=== PATIENT | female | born 1990 | race Hispanic/Latino ===

== ENCOUNTER 2024-06-11 18:43 | Observation (INO) | payer BC, MEDICAID ==
[~2024-06-11] VITALS: Ht 147.3 cm; Wt 71.2 kg
--- NOTE | 2024-06-11 18:59 | ERN ---
ED Note History of Present Illness Stated Complaint: N/V/D, EPIGASTRIC PAIN Chief Complaint: Nausea,Vomiting,Diarrhea Time Seen by MD: 18:48 Dictation: This is a 33-year-old female who presented to the emergency room with complaints of nausea vomitings and diarrhea most of the abdominal pain that she reported is in the epigastric area. All these symptoms started today patient's partner also reported that she saw some blood in the emesis. Never had these symptoms before. She received Wegovy injection yesterday for the 1st time for weight loss She also gives a history of dysmenorrhea with the heavy bleeding monthly cycle with clots. She saw her Ob and has been placed on hormonal treatment. This has not improved and currently she is on her menses Temperature 97.8 pulse 116 respirations 20 blood pressure 118/77 with a pulse oximetry of 100% on room air Allergies: Coded Allergies: No Known Allergies (Unverified Allergy, Unknown, 06/11/24) Home Meds Active Scripts Ondansetron (Ondansetron Odt) 4 Mg Tab.rapdis, 4 MG PO Q6HPRN PRN for nausea, #16 TAB 0 Refills Prov:REGINALD GARDNER MD 06/11/24 Past Medical History Past Medical History: No Pertinent History Surgical History: None Family History: Negative Social History: Negative History: Not Applicable LMP: Jun 10, 2024 RN Note Reviewed/Agreed w/PFSH: Yes Review of System Dictation Constitutional: Negative for fever,chills, and weight loss Eyes: Negative for injury, pain,redness, and discharge ENT: Negative for injury,pain or swelling Cardiovascular: Negative for chest pain, palpitations, and edema Respiratory: Negative for shortness of breath, cough, and wheezing, Abdomen/GI: Positive for abdominal pain, nausea, vomiting, diarrhea, and denied constipation Back: Negative for injury and pain : Negative for injury, bleeding and discharge MS/Extremity: Negative for injury and deformity Skin: Negative for rash, and discoloration Neuro: Negative for headache, weakness, numbness, tingling, and seizure Psych: Negative for suicide ideation, homicidal ideation, and hallucinations Initial Vital Sign VS Vital Signs Date Time Temp Pulse Resp B/P (MAP) Pulse Ox O2 Delivery O2 Flow Rate FiO2 06/11/24 18:45 97.9 116 20 118/77 100 Room Air 0 06/11/24 20:59 21 Physical Exam Dictation General: awake, alert, NAD mucous membranes dry Head/Face: Normocephalic, atraumatic Eyes: PERRL, EOMI, vision at baseline ENT: oral cavity clear, TMs clear, no signs of infection Neck: Trachea midline, supple, no nuchal rigidity Cardiovascular: RRR, normal S1/S2, No MRGs, no JVD Respiratory: CTAB, no respiratory distress, No rales or wheezes Abdomen: Soft, non-tender, non-distended, normal bowel sounds, no guarding or rebound. Skin: Warm, dry, normal turgor, no rash MS/Extremity: Pulses equal, no cyanosis, neurovascular intact, FROM Neuro: COAx4, GCS 15, strength 5/5, CN 2-12 intact, normal cerebellar exam, normal gait, Psych: Normal behavior, mood, and affect normal Extremities-trace edema without any palpable cords, Homans sign is negative Results (Laboratory/Radiology) Laboratory/Radiology Laboratory Tests Test 06/11/24 19:46 White Blood Count 13.9 K/uL (4.8-10.8) H Red Blood Count 4.63 MIL/uL (4.00-5.50) Hemoglobin 7.9 g/dL (12.0-16.0) L Hematocrit 28.4 % (36-48) L Mean Corpuscular Volume 61.3 fL (79-99) L Mean Corpuscular Hemoglobin 17.1 pg (27.0-33.0) L Mean Corpuscular Hemoglobin Concent 27.8 g/dL (32.0-36.0) L Red Cell Distribution Width 19.5 % (11.0-15.5) H Platelet Count 331 K/uL (130-400) Mean Platelet Volume fL (7.5-10.5) Immature Granulocyte % (Auto) 0.6 % (0-1) Neutrophils (%) (Auto) 82.6 % (40.0-77.0) H Lymphocytes (%) (Auto) 10.4 % (21.0-51.0) L Monocytes (%) (Auto) 6.0 % (3.0-13.0) Eosinophils (%) (Auto) 0.1 % (0.0-8.0) Basophils (%) (Auto) 0.3 % (0.0-5.0) Neutrophils # (Auto) 11.5 K/uL (1.8-7.7) H Lymphocytes # (Auto) 1.5 K/uL (1.0-4.8) Monocytes # (Auto) 0.8 K/uL (0.1-1.0) Eosinophils # (Auto) 0.01 K/uL (0.00-0.70) Basophils # (Auto) 0.04 K/uL (0.00-0.20) Absolute Immature Granulocyte (auto 0.08 K/uL (0-1) Nucleated Red Blood Cells 0.0 % (0.0-0.19) Red Blood Cell Morphology See comments Sodium Level 144 mmol/L (136-145) Potassium Level 3.8 mmol/L (3.5-5.1) Chloride Level 106 mmol/L (101-111) Carbon Dioxide Level 24 mmol/L (21-32) Blood Urea Nitrogen 23 mg/dL (7-18) H Creatinine 0.9 mg/dL (0.5-1.0) Glomerular Filtration Rate Calc 88 mL/min (>90) Random Glucose 147 mg/dL (70-105) H Total Calcium 9.3 mg/dL (8.5-10.1) Lipase 103 U/L (16-77) H Serum Test, Qualitative NEGATIVE (NEGATIVE) Labs Reviewed?: Yes ED Course ED Course Orders Procedure Category Date Status Time Ondansetron 4mg Inj PHA 06/11/24 Complete (Zofran 4mg Inj) 19:00 Pantoprazole 40mg Inj PHA 06/11/24 Complete (Protonix 40mg Inj 19:00 0.9% Nacl 500ml PHA 06/11/24 Complete Iv.Soln (Ns 500ml 19:00 Cbc With Differential LAB 06/11/24 Complete 18:55 Lipase LAB 06/11/24 Complete 18:55 Basic Metabolic Panel LAB 06/11/24 Complete 18:55 Type And Screen BBK 06/11/24 In Process 20:07 Chest 1vw RAD 06/11/24 Taken 20:10 Testing, LAB 06/11/24 Complete Serum Hcg 20:28 Admit Orders ADM 06/11/24 Transmitted 21:05 Urinalysis Profile LAB 06/11/24 Logged Catherized 21:08 *Nursing CPOE 06/11/24 Transmitted Communication: 21:08 Edm Admit Bridge Order ADM 06/11/24 Transmitted 21:13 Current Medications Medications (Trade) Dose Ordered Sig/Myron Route PRN Reason Start Time Stop Time Status Last Admin Dose Admin Ondansetron HCl (zoFRAN 4MG INJ) 4 mg ONCE ONCE IVP 06/11/24 19:00 06/11/24 19:01 DC 06/11/24 19:50 Pantoprazole Sodium (PROTonix 40MG INJ) 40 mg ONCE ONCE IVP 06/11/24 19:00 06/11/24 19:01 DC 06/11/24 19:50 Sodium Chloride 500 ml @ 0 mls/hr ONCE ONCE IV 06/11/24 19:00 06/11/24 19:01 DC 06/11/24 19:49 Vital Signs Date Time Temp Pulse Resp B/P (MAP) Pulse Ox O2 Delivery O2 Flow Rate FiO2 06/11/24 20:59 88 18 116/66 100 Room Air* 0 21 06/11/24 18:45 97.9 116 20 118/77 100 Room Air 0 We will perform diagnostic labs, and administer medications according to the patient's complaint. Once the results are available, will review and personally interpreted the labs to rule out any acute life-threatening emergency the trach require immediate intervention and treatment. I will then re-evaluate the patient after treatment and diagnostic exams have return to determine whether the patient requires any further testing, can safely be discharged home or need further admission to hospital for additional treatment and evaluation. I reviewed the labs CBC shows a white count of 13.9 hemoglobin of 7.9. BNP 7 shows a BUN and creatinine of 23 and 0.9 She has never been told that she was anemic and with the presentation of vomitings and upper GI bleed, GI pathology definitely needs to be ruled out before considering anemia secondary to dysfunctional uterine bleeding. I updated the patient and her partner and went over the labs and my concerns and she is agreeable to admission to the hospital Patient accepted by [facility] mid-level provider for the hospitalist group to be admitted to Dr. Sohail Louis Medical Decision Making MDM MDM: Differential diagnosis: Likely side effects of Wegovy, gastritis, peptic ulcer disease, gastroenteritis, Rationale: Tests considered and ordered secondary to shared decision making include: Previous outside records reviewed: Old ER visits. Risk of complication and/or morbidity or mortality of patient management: None Medications-Per medication reconciliation Need for hospitalization: Patient does not meet criteria for hospitalization. Need for emergency major/minor surgery: No There are no social concerns with this patient. Prescription drug management Prescriptions will include symptomatic care Patient's prior external medical records from other ER visits were reviewed by me as indicated. Prior testing and results from previous visits were reviewed. Prior tests were taken into account with medical decision making and resource utilization, independent historian/historians were used to obtain complete medical history. I independently interpreted the test that were performed, results were reviewed by me and considered findings on radiology if ordered. Medical management and examination interpretation discussions were had by me with other qualified healthcare professionals as indicated for the patient's care. Problem List Problem List: (1) Nausea & vomiting (2) Gastritis (3) Adverse effects of medication (4) Upper GI bleed DX & DISP Disposition: Inpatient Decision to Admit Time: 20:31 Departure Impression: Primary Impression: Nausea & vomiting Additional Impressions: Gastritis, Adverse effects of medication, Upper GI bleed Condition: Stable Scripts Ondansetron (Ondansetron Odt) 4 Mg Tab.rapdis 4 MG PO Q6HPRN PRN for nausea, #16 TAB 0 Refills Prov: REGINALD GARDNER MD 06/11/24 Additional Instructions: Patient was informed of all the diagnostic labs and procedures conducted in the emergency room today and demonstrated understanding of the results. I personally reviewed and interpreted all the diagnostic exams performed in the ER today. The patient will be admitted to the hospital for further treatment and evaluation. Disposition-admit to facility Condition-stable/guarded Course-uncertain at this time Pain status-decreased Assessment-exam unchanged Admission Certification- I certify that the patients status is appropriate and is based on my best clinical judgment and the patient's condition as documented in the medical records Referrals: SELF,REFERRAL (PCP) REGINALD GARDNER MD Jun 11, 2024 18:59
[2024-06-11] MEDS ORDERED: ONDA-243 PO (19:08)
[2024-06-11] MEDS: 0.9% NACL 500ML IV.SOLN 500 ML IV ONE (19:49)
[2024-06-11] MEDS: PANTOPrazole 40 MG/VIAL IVP ONE (19:50)
[2024-06-11] MEDS: ondanSETRON 4MG INJ IVP ONE (19:50)
[2024-06-11 19:54] LABS: BASOPHILS # (AUTO) 0.04 K/uL (0.00-0.20); BASOPHILS % (AUTO) 0.3 % (0.0-5.0); EOSINOPHILS # (AUTO) 0.01 K/uL (0.00-0.70); EOSINOPHILS % (AUTO) 0.1 % (0.0-8.0); HEMATOCRIT 28.4 % (36-48); IMMATURE GRANULOCYTE ABSOLUTE 0.08 K/uL (0-1); LYMPHOCYTES # (AUTO) 1.5 K/uL (1.0-4.8); LYMPHOCYTES % (AUTO) 10.4 % (21.0-51.0); MEAN CORPUSCULAR HEMOGLOBIN 17.1 pg (27.0-33.0); MEAN CORPUSCULAR HGB CONC 27.8 g/dL (32.0-36.0); MEAN CORPUSCULAR VOLUME 61.3 fL (79-99); MONOCYTES # (AUTO) 0.8 K/uL (0.1-1.0); NEUTROPHILS # (AUTO) 11.5 K/uL (1.8-7.7); NEUTROPHILS % (AUTO) 82.6 % (40.0-77.0); PLATELET COUNT (AUTO) 331 K/uL (130-400); RED BLOOD CELL COUNT(AUTO) 4.63 MIL/uL (4.00-5.50); RED CELL DISTRIBUTION WIDTH 19.5 % (11.0-15.5); WHITE BLOOD COUNT (AUTO) 13.9 K/uL (4.8-10.8)
[2024-06-11 20:02] LABS: CREATININE 0.9 mg/dL (0.5-1.0); POTASSIUM 3.8 mmol/L (3.5-5.1)
--- NOTE | 2024-06-11 21:11 | NUR ---
PATIENT REPORTS N/V/D AFTER STARTING ON WEGOVY FOR WEIGHT LOSS
[2024-06-11] MEDS ORDERED: acetaMINOPHEN 650 MG SUPPOSITORY RC PRN (21:30)
[2024-06-11] MEDS ORDERED: TEMAZepam 15 MG CAPSULE PO PRN (21:30)
[2024-06-11] MEDS ORDERED: hydrALAZine 20MG/ML VIAL IV PRN (21:30)
--- NOTE | 2024-06-11 21:52 | NUR ---
PATIENT REPORTS SHE DOES NOT TAKE ANY PRESCRIBED MEDICATIONS
[2024-06-11] MEDS: LACTATED RINGERS 1000ML 1,000 ML IV SCH (22:00)
[2024-06-11] MEDS: FERROUS SULFATE 325 MG TABLET.DR PO SCH (22:00)
--- NOTE | 2024-06-11 22:11 | HP ---
[facility] HISTORY AND PHYSICAL Date of Service: Jun 11, 2024 Time of Service: 22:11 Supervising physicians: Dr. Louis and Dr. Newton Deluca HISTORY OF PRESENT ILLNESS: Ms. Amador is a 33-year-old female gastritis, obesity, dysmenorrhea with heavy vaginal bleeding who presented to the emergency room for evaluation of nausea, vomiting, and diarrhea, and epigastric area onset today. The patient's partner also reported that she saw moderate amount blood in the emesis. Never had these symptoms before. She received Wegovy injection yesterday for the 1st time for weight loss. She also gives a history of dysmenorrhea with the heavy bleeding mo nthly cycle with clots. She saw her Ob and has been placed on hormonal treatment. This has not improved and currently she is on her menses. ED v/s: Temperature 97.8 pulse 116 respirations 20 blood pressure 118/77 with a pulse oximetry of 100% on room air. Labs: WBC 13.9 hemoglobin of 7.9. BUN and creatinine of 23 and 0.9. The patient stated that she has never been told that she was anemic. ED provider reports that with the presentation of vomiting and upper GI bleed, GI pathology definitely needs to be ruled out before considering anemia secondary to dysfunctional uterine bleeding. In ED patient was administered Protonix 40 mg IV, NS 500 bolus, Zofran4 mg IV. ED physician request patient be admitted with the diagnosis of nausea, vomiting, gastritis, adverse effect of medication, upper GI bleed. I went to evaluate the patient at bedside. Patient appeared comfortable, in no distress. Reports no more vomiting blood after arrival to the ED. The patient reported chronic gastritis problems but has not seen a GI doctor. Patient reports epigastric pain and nausea during my assessment. Zofran 4 mg IV, Maalox, and lidocaine were administered. I informed patient of labs, diagnosis, plan of care. She verbalized understanding and is in agreement with the plan. Plan and assessment are listed below. Addendum: Hemoglobin dropped to 6.0 in the morning. Order placed for blood transfusion. REVIEW OF SYSTEMS ROS reviewed with patient. All pertinent positives mentioned above. Otherwise negative, noncontributory, or non-pertinent. PAST MEDICAL HISTORY: As mentioned above PAST SURGICAL HISTORY: Denies surgical history PAST SOCIAL HISTORY: Denies: Alcohol, tobacco, illicit drug use FAMILY HISTORY: Noncontributory Coded Allergies: No Known Allergies (Unverified Allergy, Unknown, 06/11/24) PHYSICAL EXAM GENERAL APPEARANCE: The patient is awake, alert, and oriented, in no acute cardiopulmonary distress. NEUROLOGICAL: Cranial nerves II-XII grossly intact. Motor is 5/5 in bilateral upper and lower extremities proximal to distal. No sensory deficits. HEENT: Face is symmetric. Pupils are equal and reactive. Extraocular movements are intact. NECK: Supple. No JVD. No thyromegaly. No submental, submandibular, pre- /postauricular, occipital or supraclavicular lymphadenopathy. CHEST: Normal chest expansion. No Telemetry. LUNGS: Absence of any rales, rhonchi or any wheezing. CARDIOVASCULAR: Regular. S1 and S2 normal. No appreciable rubs, murmurs or gallops. ABDOMEN: Soft, nontender, and nondistended. There is no rebound, voluntary guarding, or rigidity. : Deferred. No Ruiz. EXTREMITIES: Non-edematous and not cyanotic. No clubbing. Good capillary refill. SKIN: No skin breakdown. Vital Sign (Last 24 Hours) 06/11/24 06/11/24 18:45 20:59 Temp 97.9 Pulse 88 Resp 18 B/P (MAP) 116/66 Pulse Ox 100 O2 Delivery Room Air* O2 Flow Rate 0 FiO2 21 LABS: Laboratory: Test 06/11/24 19:46 Range/Units White Blood Count 13.9 H 4.8-10.8 K/uL Red Blood Count 4.63 4.00-5.50 MIL/uL Hemoglobin 7.9 L 12.0-16.0 g/dL Hematocrit 28.4 L 36-48 % Mean Corpuscular Volume 61.3 L 79-99 fL Mean Corpuscular Hemoglobin 17.1 L 27.0-33.0 pg Mean Corpuscular Hemoglobin Concent 27.8 L 32.0-36.0 g/dL Red Cell Distribution Width 19.5 H 11.0-15.5 % Platelet Count 331 130-400 K/uL Mean Platelet Volume 7.5-10.5 fL Immature Granulocyte % (Auto) 0.6 0-1 % Neutrophils (%) (Auto) 82.6 H 40.0-77.0 % Lymphocytes (%) (Auto) 10.4 L 21.0-51.0 % Monocytes (%) (Auto) 6.0 3.0-13.0 % Eosinophils (%) (Auto) 0.1 0.0-8.0 % Basophils (%) (Auto) 0.3 0.0-5.0 % Neutrophils # (Auto) 11.5 H 1.8-7.7 K/uL Lymphocytes # (Auto) 1.5 1.0-4.8 K/uL Monocytes # (Auto) 0.8 0.1-1.0 K/uL Eosinophils # (Auto) 0.01 0.00-0.70 K/uL Basophils # (Auto) 0.04 0.00-0.20 K/uL Absolute Immature Granulocyte (auto 0.08 0-1 K/uL Nucleated Red Blood Cells 0.0 0.0-0.19 % Red Blood Cell Morphology See comments Sodium Level 144 136-145 mmol/L Potassium Level 3.8 3.5-5.1 mmol/L Chloride Level 106 101-111 mmol/L Carbon Dioxide Level 24 21-32 mmol/L Blood Urea Nitrogen 23 H 7-18 mg/dL Creatinine 0.9 0.5-1.0 mg/dL Glomerular Filtration Rate Calc 88 >90 mL/min Random Glucose 147 H 70-105 mg/dL Total Calcium 9.3 8.5-10.1 mg/dL Lipase 103 H 16-77 U/L Serum Test, Qualitative NEGATIVE NEGATIVE Current Medications Medications (Trade) Dose Ordered Sig/Myron Route PRN Reason Start Time Stop Time Status Last Admin Dose Admin Acetaminophen (TYLenol 325MG TAB) 650 mg Q6H PRN PO FEVER/MILD PAIN LEVEL 1-3 06/11/24 21:30 07/11/24 21:29 Acetaminophen (TYLenol 650MG SUPPOSITORY) 650 mg Q6H PRN RC FEVER / MILD PAIN 1-3 IF NPO 06/11/24 21:30 07/11/24 21:29 Ferrous Sulfate (Ferrous Sulfate) 325 mg BID PO 06/11/24 21:40 07/11/24 21:39 06/11/24 22:00 325 MG Hydralazine HCl (APRESOLine 20MG INJ) 10 mg Q2H PRN IV SBP GREATER THAN 160 06/11/24 21:30 07/11/24 21:29 Insulin Human Regular (humuLIN R 100 UNIT/ML 3ML) INSULIN SLIDING SCAL... ACHS SQ 06/12/24 07:30 07/12/24 07:29 Lactated Ringer's 1,000 ml @ 75 mls/hr [id number] IV 06/11/24 21:30 07/11/24 21:29 06/11/24 22:00 75 MLS/HR Ondansetron HCl (zoFRAN 4MG INJ) 4 mg Q6H PRN IVP NAUSEA/VOMITING 06/11/24 21:30 07/11/24 21:29 Pantoprazole Sodium (PROTonix 40MG INJ) 40 mg BID IVP 06/12/24 09:00 07/12/24 08:59 Temazepam (restORIL 15 MG CAP) 15 mg HS PRN PO INSOMNIA/SLEEP 06/11/24 21:30 07/11/24 21:29 DIAGNOSTICS / RADIOLOGY: [ ] ASSESSMENT: Upper GI bleed, POA, suspected adverse effects to Wegovy injection on 06/11/2024 Acute nausea and vomiting, POA Acute dehydration 2/2 above (elevated BUN and ketonuria), POA MONSE, GFR 88, POA Hyperglycemia, POA Elevated lipase, POA Severe anemia, requiring blood transfusion (etiology GI bleed vs dysfunction uterine bleeding, likely combined etiology), POA Chronic gastritis,. Dysfunctional uterine bleeding,. Obesity, BMI 33.5 PLAN: Admit to medical floor. Continue Protonix 40 mg IV b.i.d.. Monitor for bleed and H&H q.6 hours. Transfuse1 unit PRBCs p.r.n. hemoglobin less than seven. Keep NPO. Ferrous [id number] mg p.o. b.i.d.. Start LR 75 mL an hour. Consult GI in in a.m. Oxygen therapy as needed to keep SpO2 equal to 92%. P.r.n. medications for: Pain management, fever, hypertension, nausea, vomiting, constipation. Glucose checks a.c. and HS with insulin regular sliding scale. Blood pressure checks every4 hours and as needed. Reconcile home medications once available. Monitor renal and liver function. Monitor electrolytes and treat accordingly. A.m. labs: CBC, BNP, Mag, phos, A1c, TSH. GI and DVT prophylaxis: Protonix and SCDs. Upon discharge from hospital follow up with OBGYN for chronic dysfunction uterine bleed. ADVANCED CARE PLANNING 1. Which of the following were discussed? Hospice Care - no Therapeutic options - no Advance Directives - yes Other discussions - 2. Discussed with who? Patient 3. Voluntary nature of this service was explained to the patient? Yes 4. Amount of time spent - __ over 35 minute 5. Reviewed by Physician? (if this service was performed by NPP) Yes Patient seen and examined by me. Agree with note by CUSHION MAKER SEE ADDITIONAL ORDERS PER CHART DISCUSSED WITH NURSING STAFF GLENN ROJO TOOL STRAIGHTENER Jun 11, 2024 22:11
[2024-06-11 22:50] VITALS: BP 113/76; PULSE 111; RESP 20; TEMP 98.6; O2SAT 98
[2024-06-12] MEDS: ondanSETRON 4MG INJ IVP PRN (00:30)
[2024-06-12 00:53] LABS: APPEARANCE,URINE CLEAR (CLEAR); BILIRUBIN,URINE NEGATIVE (NEGATIVE); COLOR,URINE YELLOW (YELLOW); GLUCOSE, URINE (UA) NEGATIVE (NEGATIVE); KETONES,URINE 150 mg/dL (NEGATIVE); LEUKOCYTE ESTERASE ,URINE NEGATIVE Leu/uL (NEGATIVE); NITRATE,URINE NEGATIVE (NEGATIVE); OCCULT BLOOD,URINE SMALL (NEGATIVE); PROTEIN,URINE 30 mg/dL (NEGATIVE); UROBILINOGEN,URINE 0.2 mg/dL (0.2-1.0)
[2024-06-12 00:54] LABS: ADD UA MICROSCOPIC YES
[2024-06-12 00:55] LABS: MUCUS,URINE RARE LPF (None Seen); RBC,URINE 26-50 /HPF (0-1); SQUAMOUS EPITHELIAL CELL,UR RARE /HPF (0-2); WBC,URINE 0-1 /HPF (0-1)
[2024-06-12] MEDS: MAG/ALUM/SIMETH 30 ML UDCUP PO ONE (00:56)
[2024-06-12] MEDS: LIDOCAINE HCL 2% VISCOUS 15 ML UDCUP PO ONE (00:57)
[2024-06-12 04:00] VITALS: BP 129/73; PULSE 111; RESP 20; TEMP 98.1
[2024-06-12 04:51] LABS: MAGNESIUM 1.8 mg/dL (1.80-2.40); PHOSPHORUS 4.4 mg/dL (2.5-4.9); THYROID STIMULATING HORMONE 0.53 uIU/mL (0.36-3.74)
[2024-06-12 05:05] LABS: MEAN CORPUSCULAR HEMOGLOBIN 17.4 pg (27.0-33.0); MEAN CORPUSCULAR HGB CONC 28.6 g/dL (32.0-36.0); MEAN CORPUSCULAR VOLUME 60.9 fL (79-99); RED BLOOD CELL COUNT(AUTO) 3.45 MIL/uL (4.00-5.50); RED CELL DISTRIBUTION WIDTH 18.8 % (11.0-15.5); WHITE BLOOD COUNT (AUTO) 9.2 K/uL (4.8-10.8)
--- NOTE | 2024-06-12 05:36 | NUR ---
PATIENT NOTIFIED OF CRITICAL ABNORMAL LAB VALUE AND ORDER BY [employer] ADMINISTRATOR FOR BLOOD TRANSFUSION. PATIENT ADVISED OF CRITICAL VALUES ARE POTENTIALLY LIFE THREATENING AND THERAPEUTIC MEASURES CAN BE INSTITUTED, PT SIGNED REFUSAL FORM FOR BLOOD TRANSFUSION AND BLOOD PRODUCTS AT THIS TIME. PATIENT STATES WILL LIKE TO SPEAK TO FAMILY REGARDING BLOOD TRANSFUSION.
--- NOTE | 2024-06-12 05:50 | NUR ---
NOTIFIED PROVIDER REGARDING PATIENT REFUSAL FOR BLOOD TRANSFUSION
[2024-06-12] MEDS: INSULIN humuLIN R 100 UNIT/ML 3ML SQ SCH (06:38)
[2024-06-12 08:00] VITALS: BP 129/79; PULSE 97; RESP 18; TEMP 98.6
[2024-06-12] MEDS: PANTOPrazole 40 MG/VIAL IVP SCH (08:58)
[2024-06-12] MEDS: acetaMINOPHEN 325 MG TAB PO PRN (08:59)
[2024-06-12 09:00] VITALS: O2SAT 99
[2024-06-12 09:06] LABS: CREATININE 0.6 mg/dL (0.5-1.0); POTASSIUM 3.7 mmol/L (3.5-5.1)
--- NOTE | 2024-06-12 09:08 | PN ---
[facility] PROGRESS NOTE Date of Service: Jun 12, 2024 Time of Service: 09:05 SUBJECTIVE: The patient has been seen and examined, no acute events overnight, comfortable in bed, BP 129/79, afebrile, saturating normal on room air. Hemoglobin dropped to 6.0, hematocrit 21.0. Per discussion with the RN, patient refusing blood transfusion, however upon my visit, she has consent to blood transfusion if needed. She admits heavy periods but not having her menstrual period right now. Denies melena, no nausea, no vomiting, no abdominal discomfort. We will repeat CBC as well as iron level panel, if hemoglobin still low, she is in agreement to transfuse 1 unit of PRBC. We have requested GI consultation as well. REVIEW OF SYSTEMS ROS reviewed with patient. All pertinent positives mentioned above. Otherwise negative, noncontributory, or non-pertinent. PHYSICAL EXAM GENERAL APPEARANCE: The patient is awake, alert, and oriented, in no acute c ardiopulmonary distress. NEUROLOGICAL: Cranial nerves II-XII grossly intact. Motor is 5/5 in bilateral upper and lower extremities proximal to distal. No sensory deficits. HEENT: Face is symmetric. Pupils are equal and reactive. Extraocular movements are intact. NECK: Supple. No JVD. No thyromegaly. No submental, submandibular, pre- /postauricular, occipital or supraclavicular lymphadenopathy. CHEST: Normal chest expansion. No Telemetry. LUNGS: Absence of any rales, rhonchi or any wheezing. CARDIOVASCULAR: Regular. S1 and S2 normal. No appreciable rubs, murmurs or gallops. ABDOMEN: Soft, nontender, and nondistended. There is no rebound, voluntary guarding, or rigidity. : Deferred. No Ruiz. EXTREMITIES: Non-edematous and not cyanotic. No clubbing. Good capillary refill. SKIN: No skin breakdown. Vital Signs (last 8hr) Date Time Temp Pulse Resp B/P (MAP) Pulse Ox O2 Delivery O2 Flow Rate FiO2 06/12/24 08:00 98.6 97 18 129/79 99 Room Air 21 06/12/24 04:00 98.1 111 20 129/73 98 Room Air LABS: Laboratory: Test 06/12/24 05:33 06/12/24 04:16 06/12/24 00:30 06/11/24 19:46 Range/Units Whole Blood Glucose 93 70-110 MG/DL White Blood Count 9.2 # 4.8-10.8 K/uL Red Blood Count 3.45 #L 4.00-5.50 MIL/uL Hemoglobin 6.0 #*L 12.0-16.0 g/dL Hematocrit 21.0 #*L 36-48 % Mean Corpuscular Volume 60.9 L 79-99 fL Mean Corpuscular Hemoglobin 17.4 L 27.0-33.0 pg Mean Corpuscular Hemoglobin Concent 28.6 L 32.0-36.0 g/dL Red Cell Distribution Width 18.8 H 11.0-15.5 % Platelet Count 244 # 130-400 K/uL Mean Platelet Volume 10.7 H 7.5-10.5 fL Nucleated Red Blood Cells 0.0 0.0-0.19 % Phosphorus Level 4.4 2.5-4.9 mg/dL Magnesium Level 1.80 1.80-2.40 mg/dL Thyroid Stimulating Hormone (TSH) 0.53 0.36-3.74 uIU/mL Urine Color YELLOW YELLOW Urine Appearance CLEAR CLEAR Urine pH 6.0 5.0-8.0 Urine Specific [place] 1.027 1.001-1.031 Urine Protein 30 H NEGATIVE mg/dL Urine Glucose (UA) NEGATIVE NEGATIVE mg/dL Urine Ketones 150 H NEGATIVE mg/dL Urine Occult Blood SMALL H NEGATIVE Urine Nitrate NEGATIVE NEGATIVE Urine Bilirubin NEGATIVE NEGATIVE mg/dL Urine Urobilinogen 0.2 0.2-1.0 mg/dL Urine Leukocyte Esterase NEGATIVE NEGATIVE Jorgito/uL Urine RBC 26-50 H 0-1 /HPF Urine WBC 0-1 0-1 /HPF Urine Squamous Epithelial Cells RARE 0-2 /HPF Urine Bacteria None None Seen /HPF Immature Granulocyte % (Auto) 0.6 0-1 % Neutrophils (%) (Auto) 82.6 H 40.0-77.0 % Lymphocytes (%) (Auto) 10.4 L 21.0-51.0 % Monocytes (%) (Auto) 6.0 3.0-13.0 % Eosinophils (%) (Auto) 0.1 0.0-8.0 % Basophils (%) (Auto) 0.3 0.0-5.0 % Neutrophils # (Auto) 11.5 H 1.8-7.7 K/uL Lymphocytes # (Auto) 1.5 1.0-4.8 K/uL Monocytes # (Auto) 0.8 0.1-1.0 K/uL Eosinophils # (Auto) 0.01 0.00-0.70 K/uL Basophils # (Auto) 0.04 0.00-0.20 K/uL Absolute Immature Granulocyte (auto 0.08 0-1 K/uL Red Blood Cell Morphology See comments Sodium Level 144 136-145 mmol/L Potassium Level 3.8 3.5-5.1 mmol/L Chloride Level 106 101-111 mmol/L Carbon Dioxide Level 24 21-32 mmol/L Blood Urea Nitrogen 23 H 7-18 mg/dL Creatinine 0.9 0.5-1.0 mg/dL Glomerular Filtration Rate Calc 88 >90 mL/min Random Glucose 147 H 70-105 mg/dL Total Calcium 9.3 8.5-10.1 mg/dL Lipase 103 H 16-77 U/L Serum Test, Qualitative NEGATIVE NEGATIVE Current Medications Medications (Trade) Dose Ordered Sig/Myron Route PRN Reason Start Time Stop Time Status Last Admin Dose Admin Acetaminophen (TYLenol 325MG TAB) 650 mg Q6H PRN PO FEVER/MILD PAIN LEVEL 1-3 06/11/24 21:30 07/11/24 21:29 06/12/24 08:59 650 MG Acetaminophen (TYLenol 650MG SUPPOSITORY) 650 mg Q6H PRN RC FEVER / MILD PAIN 1-3 IF NPO 06/11/24 21:30 07/11/24 21:29 Ferrous Sulfate (Ferrous Sulfate) 325 mg BID PO 06/11/24 21:40 07/11/24 21:39 06/12/24 08:58 325 MG Hydralazine HCl (APRESOLine 20MG INJ) 10 mg Q2H PRN IV SBP GREATER THAN 160 06/11/24 21:30 07/11/24 21:29 Insulin Human Regular (humuLIN R 100 UNIT/ML 3ML) INSULIN SLIDING SCAL... ACHS SQ 06/12/24 07:30 07/12/24 07:29 Lactated Ringer's 1,000 ml @ 75 mls/hr [id number] IV 06/11/24 21:30 07/11/24 21:29 06/11/24 22:00 75 MLS/HR Ondansetron HCl (zoFRAN 4MG INJ) 4 mg Q6H PRN IVP NAUSEA/VOMITING 06/11/24 21:30 07/11/24 21:29 06/12/24 00:30 4 MG Pantoprazole Sodium (PROTonix 40MG INJ) 40 mg BID IVP 06/12/24 09:00 07/12/24 08:59 06/12/24 08:58 40 MG Temazepam (restORIL 15 MG CAP) 15 mg HS PRN PO INSOMNIA/SLEEP 06/11/24 21:30 07/11/24 21:29 DIAGNOSTICS / RADIOLOGY: [ ] ASSESSMENT: Upper GI bleed, POA, suspected adverse effects to Wegovy injection on 06/11/2024 Acute nausea and vomiting, POA Acute dehydration 2/2 above (elevated BUN and ketonuria), POA MONSE, GFR 88, POA Hyperglycemia, POA Elevated lipase, POA Severe anemia, requiring blood transfusion (etiology GI bleed vs dysfunction uterine bleeding, likely combined etiology), POA Chronic gastritis,. Dysfunctional uterine bleeding,. Obesity, BMI 33.5 PLAN: Admit to medical floor. Continue Protonix 40 mg IV b.i.d.. Monitor for bleed and H&H q.6 hours. Transfuse1 unit PRBCs p.r.n. hemoglobin less than seven. Keep NPO. Ferrous [id number] mg p.o. b.i.d.. Continue LR 75 mL an hour. GI consultation requested, follow input recommendation Oxygen therapy as needed to keep SpO2 equal to 92%. P.r.n. medications for: Pain management, fever, hypertension, nausea, vomiting, constipation. Glucose checks a.c. and HS with insulin regular sliding scale. Blood pressure checks every4 hours and as needed. Reconcile home medications once available. Monitor renal and liver function. Monitor electrolytes and treat accordingly. A.m. labs: CBC, BNP, Mag, phos, A1c, TSH. GI and DVT prophylaxis: Protonix and SCDs. Disposition: Follow repeat CBC, transfuse 1 unit of PRBC if hemoglobin less t leal seven. GI consultation requested, we will follow input and recommendation. Plan of action discussed, all questions answered, agreed and understood the information provided. DALLAS FISHER MD Jun 12, 2024 09:08
[2024-06-12 09:11] LABS: ALBUMIN 3.1 g/dL (3.5-5.0); BILIRUBIN,TOTAL 0.2 mg/dL (0.2-1.0); TOTAL PROTEIN, SERUM 6.2 g/dL (6.0-8.3)
--- NOTE | 2024-06-12 09:12 | HMCIMG ---
CHEST 1VW REASON: nausea vomitings, GI bleed COMPARISON: None. FINDINGS: Single view of the chest was obtained. Lungs are clear. Heart size is normal. There is no pulmonary vascular congestion. Mediastinum and bony thorax appear unremarkable. IMPRESSION: 1. Normal single view chest x-ray.
[2024-06-12 09:19] LABS: % IRON SATURATION 16.6 % (22-44)
[2024-06-12 09:39] LABS: HEMATOCRIT 22.4 % (36-48); MEAN CORPUSCULAR HEMOGLOBIN 17.6 pg (27.0-33.0); MEAN CORPUSCULAR HGB CONC 28.6 g/dL (32.0-36.0); MEAN CORPUSCULAR VOLUME 61.5 fL (79-99); RED BLOOD CELL COUNT(AUTO) 3.64 MIL/uL (4.00-5.50); WHITE BLOOD COUNT (AUTO) 8.4 K/uL (4.8-10.8)
[2024-06-12 10:25] LABS: PROTHROMBIN TIME 11.2 SEC (9.6-11.6)
[2024-06-12 12:00] VITALS: BP 126/75; PULSE 101; RESP 18; TEMP 98.7
--- NOTE | 2024-06-12 13:50 | CONS ---
GASTROENTEROLOGY CONSULTATION NOTE Date of Consultation: Jun 12, 2024 Time of Consultation: 13:50 History of Present Illness: This is a 33-year-old female with past medical history of gastritis, obesity, dysmenorrhea with heavy vaginal bleeding who presented due to nausea, vomiting, diarrhea and epigastric pain. She reported hematemesis and we were consulted for this reason. She received Wegovy injection yesterday for the first time for weight loss. She has a history of dysmenorrhea with heavy bleeding monthly. No history of anemia or workup. Hemoglobin on admission was 7.9 and trended down to 6 with a platelet count of 244. MCV of 60.9. BUN elevated at 20. CT abdomen and pelvis revealing 2 fibroids and posterior uterine fundus. Review of Systems: CONSTITUTIONAL: No malaise or change in sensation of wellbeing. ENMT: No rhinorrhea, otorrhea, sinus pain, ear ache. CARDIOVASCULAR: No angina, palpitations, orthopnea or paroxysmal dyspnea. RESPIRATORY: No SOB. GASTROINTESTINAL: No abdominal pain, nausea, vomiting, diarrhea, hematemesis, melena or change in the patient's habitual bowel movements consistency/number. GENITOURINARY: No dysuria, hematuria or change in bladder continence. MUSCULOSKELETAL: No new muscle pain or decrease in muscular strength. No new ector int swelling, redness or tenderness. SKIN: No new rash. Past Medical History: [ ] Past Surgical History: [ ] Past Social History: [ ] Family History: [ ] Coded Allergies: No Known Allergies (Unverified Allergy, Unknown, 06/11/24) Physical Exam: GEN: Awake, alert, oriented in person, time and place, and in no acute distress. HEENT: No sinus tenderness. Tympanic membranes were not examined. No rhinorrhea. Oral pharyngeal mucosa is pink, moist and within normal limits. Neck is supple with no cervical lymphadenopathy, thyromegaly or JVD. CHEST: Inspection, palpation and percussion of the chest were unremarkable. Lung auscultation revealed normal breath sounds bilaterally. CARDIAC: PMI is within normal limits. Heart sounds are regular. Normal S1, S2. No gallop or murmur. ABD: Soft, non-tender and not distended. No peritoneal signs on palpation. No organomegaly. Normal bowel sounds. EXT: No cyanosis or clubbing. No edema. SKIN: Intact. No rashes. JOINTS: No evidence of synovitis or acute arthritis. NEURO: Alert and oriented to name, place and person. Cranial nerve examination is unremarkable. No focal motor deficits. Normal speech. Gait is normal. Strength is normal. Vital Sign (Last 24 Hours) 06/12/24 06/12/24 09:00 12:00 Temp 98.8 Pulse 101 Resp 18 B/P (MAP) 126/75 Pulse Ox 98 O2 Delivery Room Air O2 Flow Rate 0 FiO2 21 Laboratory: [ ] Laboratory: Test 06/12/24 11:11 06/12/24 10:06 06/12/24 09:35 06/12/24 04:16 Range/Units Whole Blood Glucose 90 70-110 MG/DL Prothrombin Time 11.2 9.6-11.6 SEC Prothromb Time International Ratio 1.00 0.85-1.15 White Blood Count 8.4 4.8-10.8 K/uL Red Blood Count 3.64 L 4.00-5.50 MIL/uL Hemoglobin 6.4 *L 12.0-16.0 g/dL Hematocrit 22.4 L 36-48 % Mean Corpuscular Volume 61.5 L 79-99 fL Mean Corpuscular Hemoglobin 17.6 L 27.0-33.0 pg Mean Corpuscular Hemoglobin Concent 28.6 L 32.0-36.0 g/dL Red Cell Distribution Width 19.0 H 11.0-15.5 % Platelet Count 220 130-400 K/uL Mean Platelet Volume 10.0 7.5-10.5 fL Nucleated Red Blood Cells 0.0 0.0-0.19 % Sodium Level 139 136-145 mmol/L Potassium Level 3.7 3.5-5.1 mmol/L Chloride Level 105 101-111 mmol/L Carbon Dioxide Level 22 21-32 mmol/L Blood Urea Nitrogen 20 H 7-18 mg/dL Creatinine 0.6 0.5-1.0 mg/dL Glomerular Filtration Rate Calc 123 >90 mL/min Random Glucose 88 70-105 mg/dL Total Calcium 7.9 L 8.5-10.1 mg/dL Phosphorus Level 4.4 2.5-4.9 mg/dL Magnesium Level 1.80 1.80-2.40 mg/dL Iron Level 71 50-170 mcg/dL Total Iron Binding Capacity 427 250-450 mcg/dL Percent Iron Saturation 16.6 L 22-44 % Total Bilirubin 0.2 0.2-1.0 mg/dL Aspartate Amino Transf (AST/SGOT) 11 10-37 U/L Alanine Aminotransferase (ALT/SGPT) 12 12-78 U/L Alkaline Phosphatase 51 50-136 U/L Total Protein 6.2 6.0-8.3 g/dL Albumin 3.1 L 3.5-5.0 g/dL Thyroid Stimulating Hormone (TSH) 0.53 0.36-3.74 uIU/mL Test 06/12/24 00:30 06/11/24 19:46 Range/Units Urine Color YELLOW YELLOW Urine Appearance CLEAR CLEAR Urine pH 6.0 5.0-8.0 Urine Specific [place] 1.027 1.001-1.031 Urine Protein 30 H NEGATIVE mg/dL Urine Glucose (UA) NEGATIVE NEGATIVE mg/dL Urine Ketones 150 H NEGATIVE mg/dL Urine Occult Blood SMALL H NEGATIVE Urine Nitrate NEGATIVE NEGATIVE Urine Bilirubin NEGATIVE NEGATIVE mg/dL Urine Urobilinogen 0.2 0.2-1.0 mg/dL Urine Leukocyte Esterase NEGATIVE NEGATIVE Jorgito/uL Urine RBC 26-50 H 0-1 /HPF Urine WBC 0-1 0-1 /HPF Urine Squamous Epithelial Cells RARE 0-2 /HPF Urine Bacteria None None Seen /HPF Immature Granulocyte % (Auto) 0.6 0-1 % Neutrophils (%) (Auto) 82.6 H 40.0-77.0 % Lymphocytes (%) (Auto) 10.4 L 21.0-51.0 % Monocytes (%) (Auto) 6.0 3.0-13.0 % Eosinophils (%) (Auto) 0.1 0.0-8.0 % Basophils (%) (Auto) 0.3 0.0-5.0 % Neutrophils # (Auto) 11.5 H 1.8-7.7 K/uL Lymphocytes # (Auto) 1.5 1.0-4.8 K/uL Monocytes # (Auto) 0.8 0.1-1.0 K/uL Eosinophils # (Auto) 0.01 0.00-0.70 K/uL Basophils # (Auto) 0.04 0.00-0.20 K/uL Absolute Immature Granulocyte (auto 0.08 0-1 K/uL Red Blood Cell Morphology See comments Lipase 103 H 16-77 U/L Serum Test, Qualitative NEGATIVE NEGATIVE Current Medications Medications (Trade) Dose Ordered Sig/Myron Route PRN Reason Start Time Stop Time Status Last Admin Dose Admin Acetaminophen (TYLenol 325MG TAB) 650 mg Q6H PRN PO FEVER/MILD PAIN LEVEL 1-3 06/11/24 21:30 07/11/24 21:29 06/12/24 08:59 650 MG Acetaminophen (TYLenol 650MG SUPPOSITORY) 650 mg Q6H PRN RC FEVER / MILD PAIN 1-3 IF NPO 06/11/24 21:30 07/11/24 21:29 Ferrous Sulfate (Ferrous Sulfate) 325 mg BID PO 06/11/24 21:40 07/11/24 21:39 06/12/24 08:58 325 MG Hydralazine HCl (APRESOLine 20MG INJ) 10 mg Q2H PRN IV SBP GREATER THAN 160 06/11/24 21:30 07/11/24 21:29 Insulin Human Regular (humuLIN R 100 UNIT/ML 3ML) INSULIN SLIDING SCAL... ACHS SQ 06/12/24 07:30 07/12/24 07:29 Lactated Ringer's 1,000 ml @ 75 mls/hr [id number] IV 06/11/24 21:30 07/11/24 21:29 06/12/24 13:26 75 MLS/HR Ondansetron HCl (zoFRAN 4MG INJ) 4 mg Q6H PRN IVP NAUSEA/VOMITING 06/11/24 21:30 07/11/24 21:29 06/12/24 00:30 4 MG Pantoprazole Sodium (PROTonix 40MG INJ) 40 mg BID IVP 06/12/24 09:00 07/12/24 08:59 06/12/24 08:58 40 MG Temazepam (restORIL 15 MG CAP) 15 mg HS PRN PO INSOMNIA/SLEEP 06/11/24 21:30 07/11/24 21:29 Diagnostics / Radiology: [COPY/PASTE HERE IF NO REPORTS PLEASE DELETE SECTION] Assessment: Hematemesis SUHAS Dysmenorrhea Plan: EGD in am Consider gyne consult WOO 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
--- NOTE | 2024-06-12 14:42 | HMCIMG ---
US TRANSVAGINAL NON-OB REASON: h/o abnormal vaginal bleed COMPARISON: None TECHNIQUE: Transvaginal pelvic sonogram was performed. FINDINGS: Uterus is 8 x 3.7 x 5.0 cm. Endometrium is 4 mm. There is a 3.3 x 3.7 cm fibroid in the posterior fundus. There is a second 1.7 cm fibroid. Myometrium appears otherwise unremarkable. Left ovary appears normal. Right ovary was not separately identified. There are no adnexal masses. There is no free fluid in the cul-de-sac. IMPRESSION: 1. 2 fibroids in the posterior uterine fundus, largest is 3.3 cm. 2. Otherwise unremarkable exam.
[2024-06-12 16:00] VITALS: BP 106/63; PULSE 95; RESP 18; TEMP 98
--- NOTE | 2024-06-12 16:10 | NUR ---
Discharge Planning: Pt. states she lives alone. Contact number is for her mother Giovanna Amador at . States she sees PCP at [facility] in [place] and preferred pharmacy is [facility]. Pt. is employed. States she is independent with all ADL's. No home health, provider services, or DME. DCP is for home. Addendum: 06/12/24 at 1613 by LUIGI MITCHELL RN CM Amended: Links added.
[2024-06-12 20:00] VITALS: BP 116/70; PULSE 99; RESP 18; TEMP 98.7; O2SAT 97
[2024-06-12 22:02] LABS: HEMATOCRIT 22.4 % (36-48)
[2024-06-13] VITALS (22 sets, daily range): BP systolic 89–127; BP diastolic 43–86; PULSE 79–104; RESP 16–18; TEMP 97.5–98.4; O2SAT 98
[2024-06-13 06:01] LABS: HEMATOCRIT 27.2 % (36-48); MEAN CORPUSCULAR HEMOGLOBIN 19.8 pg (27.0-33.0); MEAN CORPUSCULAR HGB CONC 29.4 g/dL (32.0-36.0); MEAN CORPUSCULAR VOLUME 67.2 fL (79-99); RED BLOOD CELL COUNT(AUTO) 4.05 MIL/uL (4.00-5.50); RED CELL DISTRIBUTION WIDTH 22.9 % (11.0-15.5); WHITE BLOOD COUNT (AUTO) 6.7 K/uL (4.8-10.8)
[2024-06-13 06:22] LABS: ALBUMIN 3.2 g/dL (3.5-5.0); BILIRUBIN,TOTAL 0.8 mg/dL (0.2-1.0); CREATININE 0.5 mg/dL (0.5-1.0); MAGNESIUM 1.8 mg/dL (1.80-2.40); POTASSIUM 3.5 mmol/L (3.5-5.1)
--- NOTE | 2024-06-13 08:15 | NUR ---
PATIENT HAS LEFT FLOOR FOR EGD PROCEDURE
[2024-06-13] MEDS ORDERED: FERS325 PO (09:42)
[2024-06-13] MEDS ORDERED: proPOFol 10 MG/ML 20ML VIAL IV ONE (09:50)
--- NOTE | 2024-06-13 12:45 | PN ---
[facility] PROGRESS NOTE Date of Service: Jun 13, 2024 Time of Service: 12:39 SUBJECTIVE: 06/12 The patient has been seen and examined, no acute events overnight, comfortable in bed, BP 129/79, afebrile, saturating normal on room air. Hemoglobin dropped to 6.0, hematocrit 21.0. Per discussion with the RN, patient refusing blood transfusion, however upon my visit, she has consent to blood transfusion if needed. She admits heavy periods, currently having her menstrual period. Denies melena, no nausea, no vomiting, no abdominal discomfort. We will repeat CBC as well as iron level panel, if hemoglobin still low, she is in agreement to transfuse 1 unit of PRBC. We have requested GI consultation as well. 06/13 the patient has been seen and examined, just had EGD, tolerated well. Findings reviewed, discussed with the patient. She got 1 unit of PRBC transfused yesterday, tolerated well, hemoglobin improved to 8.0. She is currently having her menstrual period. BP 124/63, afebrile, saturating normal on room air. Ultrasound transvaginal non-OB done yesterday, to fibrosis in the posterior uterine fundus, largest is 3.3 cm, otherwise unremarkable exam. Findings discussed with the patient. We will request staff anesthesiologist consultation. Findings of EGD as follows: -normal examined duodenum. -normal esophagus. -gastritis. Biopsied. REVIEW OF SYSTEMS ROS reviewed with patient. All pertinent positives mentioned above. Otherwise negative, noncontributory, or non-pertinent. PHYSICAL EXAM GENERAL APPEARANCE: The patient is awake, alert, and oriented, in no acute cardiopulmonary distress. NEUROLOGICAL: Cranial nerves II-XII grossly intact. Motor is 5/5 in bilateral upper and lower extremities proximal to distal. No sensory deficits. HEENT: Face is symmetric. Pupils are equal and reactive. Extraocular movements are intact. NECK: Supple. No JVD. No thyromegaly. No submental, submandibular, pre- /postauricular, occipital or supraclavicular lymphadenopathy. CHEST: Normal chest expansion. No Telemetry. LUNGS: Absence of any rales, rhonchi or any wheezing. CARDIOVASCULAR: Regular. S1 and S2 normal. No appreciable rubs, murmurs or gallops. ABDOMEN: Soft, nontender, and nondistended. There is no rebound, voluntary guarding, or rigidity. : Deferred. No Ruiz. EXTREMITIES: Non-edematous and not cyanotic. No clubbing. Good capillary refill. SKIN: No skin breakdown. Vital Signs (last 8hr) Date Time Temp Pulse Resp B/P (MAP) Pulse Ox O2 Delivery O2 Flow Rate FiO2 06/13/24 10:29 94 17 124/63 97 Room Air 06/13/24 10:24 96 16 125/64 96 Room Air 06/13/24 10:19 94 17 125/64 97 Room Air 06/13/24 10:14 95 18 123/71 97 Room Air 06/13/24 10:09 104 17 121/67 98 06/13/24 10:04 100 16 124/62 99 06/13/24 09:59 97.5 102 17 124/55 100 Nonrebreathing Mask 10.0 06/13/24 08:00 98.2 83 18 127/86 98 Room Air 21 LABS: Laboratory: Test 06/13/24 10:38 06/13/24 05:51 06/12/24 10:06 06/12/24 04:16 Range/Units Whole Blood Glucose 78 70-110 MG/DL White Blood Count 6.7 4.8-10.8 K/uL Red Blood Count 4.05 4.00-5.50 MIL/uL Hemoglobin 8.0 #L 12.0-16.0 g/dL Hematocrit 27.2 #L 36-48 % Mean Corpuscular Volume 67.2 L 79-99 fL Mean Corpuscular Hemoglobin 19.8 L 27.0-33.0 pg Mean Corpuscular Hemoglobin Concent 29.4 L 32.0-36.0 g/dL Red Cell Distribution Width 22.9 H 11.0-15.5 % Platelet Count 190 130-400 K/uL Mean Platelet Volume 10.2 7.5-10.5 fL Nucleated Red Blood Cells 0.0 0.0-0.19 % Sodium Level 141 136-145 mmol/L Potassium Level 3.5 3.5-5.1 mmol/L Chloride Level 107 101-111 mmol/L Carbon Dioxide Level 23 21-32 mmol/L Blood Urea Nitrogen 14 7-18 mg/dL Creatinine 0.5 0.5-1.0 mg/dL Glomerular Filtration Rate Calc 129 >90 mL/min Random Glucose 76 70-105 mg/dL Total Calcium 8.2 L 8.5-10.1 mg/dL Magnesium Level 1.80 1.80-2.40 mg/dL Total Bilirubin 0.8 0.2-1.0 mg/dL Aspartate Amino Transf (AST/SGOT) 14 10-37 U/L Alanine Aminotransferase (ALT/SGPT) 13 12-78 U/L Alkaline Phosphatase 53 50-136 U/L Total Protein 6.0 6.0-8.3 g/dL Albumin 3.2 L 3.5-5.0 g/dL Prothrombin Time 11.2 9.6-11.6 SEC Prothromb Time International Ratio 1.00 0.85-1.15 Phosphorus Level 4.4 2.5-4.9 mg/dL Iron Level 71 50-170 mcg/dL Total Iron Binding Capacity 427 250-450 mcg/dL Percent Iron Saturation 16.6 L 22-44 % Thyroid Stimulating Hormone (TSH) 0.53 0.36-3.74 uIU/mL Test 06/12/24 00:30 06/11/24 19:46 Range/Units Urine Color YELLOW YELLOW Urine Appearance CLEAR CLEAR Urine pH 6.0 5.0-8.0 Urine Specific [place] 1.027 1.001-1.031 Urine Protein 30 H NEGATIVE mg/dL Urine Glucose (UA) NEGATIVE NEGATIVE mg/dL Urine Ketones 150 H NEGATIVE mg/dL Urine Occult Blood SMALL H NEGATIVE Urine Nitrate NEGATIVE NEGATIVE Urine Bilirubin NEGATIVE NEGATIVE mg/dL Urine Urobilinogen 0.2 0.2-1.0 mg/dL Urine Leukocyte Esterase NEGATIVE NEGATIVE Jorgito/uL Urine RBC 26-50 H 0-1 /HPF Urine WBC 0-1 0-1 /HPF Urine Squamous Epithelial Cells RARE 0-2 /HPF Urine Bacteria None None Seen /HPF Immature Granulocyte % (Auto) 0.6 0-1 % Neutrophils (%) (Auto) 82.6 H 40.0-77.0 % Lymphocytes (%) (Auto) 10.4 L 21.0-51.0 % Monocytes (%) (Auto) 6.0 3.0-13.0 % Eosinophils (%) (Auto) 0.1 0.0-8.0 % Basophils (%) (Auto) 0.3 0.0-5.0 % Neutrophils # (Auto) 11.5 H 1.8-7.7 K/uL Lymphocytes # (Auto) 1.5 1.0-4.8 K/uL Monocytes # (Auto) 0.8 0.1-1.0 K/uL Eosinophils # (Auto) 0.01 0.00-0.70 K/uL Basophils # (Auto) 0.04 0.00-0.20 K/uL Absolute Immature Granulocyte (auto 0.08 0-1 K/uL Red Blood Cell Morphology See comments Lipase 103 H 16-77 U/L Serum Test, Qualitative NEGATIVE NEGATIVE Current Medications Medications (Trade) Dose Ordered Sig/Myron Route PRN Reason Start Time Stop Time Status Last Admin Dose Admin Acetaminophen (TYLenol 325MG TAB) 650 mg Q6H PRN PO FEVER/MILD PAIN LEVEL 1-3 06/11/24 21:30 07/11/24 21:29 06/12/24 08:59 650 MG Acetaminophen (TYLenol 650MG SUPPOSITORY) 650 mg Q6H PRN RC FEVER / MILD PAIN 1-3 IF NPO 06/11/24 21:30 07/11/24 21:29 Ferrous Sulfate (Ferrous Sulfate) 325 mg BID PO 06/11/24 21:40 07/11/24 21:39 06/12/24 19:25 325 MG Hydralazine HCl (APRESOLine 20MG INJ) 10 mg Q2H PRN IV SBP GREATER THAN 160 06/11/24 21:30 07/11/24 21:29 Insulin Human Regular (humuLIN R 100 UNIT/ML 3ML) INSULIN SLIDING SCAL... ACHS SQ 06/12/24 07:30 07/12/24 07:29 Lactated Ringer's 1,000 ml @ 75 mls/hr [id number] IV 06/11/24 21:30 07/11/24 21:29 06/12/24 13:26 75 MLS/HR Ondansetron HCl (zoFRAN 4MG INJ) 4 mg Q6H PRN IVP NAUSEA/VOMITING 06/11/24 21:30 07/11/24 21:29 06/12/24 00:30 4 MG Pantoprazole Sodium (PROTonix 40MG INJ) 40 mg BID IVP 06/12/24 09:00 07/12/24 08:59 06/12/24 19:25 40 MG Temazepam (restORIL 15 MG CAP) 15 mg HS PRN PO INSOMNIA/SLEEP 06/11/24 21:30 07/11/24 21:29 DIAGNOSTICS / RADIOLOGY: [ ] ASSESSMENT: Upper GI bleed, secondary to gastritis POA, Abnormal vaginal bleed secondary to uterine fibroids, POA Acute blood loss anemia, POA Acute dehydration 2/2 above (elevated BUN and ketonuria), POA MONSE, GFR 88, POA Hyperglycemia, POA Elevated lipase, POA Chronic gastritis,. Dysfunctional uterine bleeding,. Obesity, BMI 33.5 PLAN: Remains admitted to the medical floor Change Protonix to 40 mg p.o. daily Follow repeat CBC today, transfuse as needed Advanced diet as tolerated Ferrous [id number] mg p.o. b.i.d.. Traveling Operator consultation requested, follow input and recommendation Replace electrolytes IV per protocol A.m. labs Disposition: Remains admitted to the medical floor, follow CBC, transfuse as needed, findings of EGD a reviewed, discussed with the patient. The patient also with a uterine fibroids on ultrasound pelvic, we will request staff anesthesiologist consultation. Plan of action discussed, all questions answered, agreed and understood the information provided. DALLAS FISHER MD Jun 13, 2024 12:45
--- NOTE | 2024-06-13 12:54 | NUR ---
DR MILTON PAGED DR MILTON REGARDING NEW CONSULT. PENDING PAGE BACK.
[2024-06-13 17:31] LABS: HEMATOCRIT 27.6 % (36-48); MEAN CORPUSCULAR HEMOGLOBIN 20.1 pg (27.0-33.0); MEAN CORPUSCULAR HGB CONC 29.3 g/dL (32.0-36.0); MEAN CORPUSCULAR VOLUME 68.5 fL (79-99); RED BLOOD CELL COUNT(AUTO) 4.03 MIL/uL (4.00-5.50); RED CELL DISTRIBUTION WIDTH 22.5 % (11.0-15.5); WHITE BLOOD COUNT (AUTO) 8.1 K/uL (4.8-10.8)
[2024-06-13] MEDS: PANTOPrazole 40 MG TAB DR PO SCH (21:23)
[2024-06-14 00:11] VITALS: BP 103/69; PULSE 67; RESP 18; TEMP 98.5
[2024-06-14 04:04] VITALS: BP 109/67; PULSE 92; RESP 18; TEMP 98.6
[2024-06-14 04:28] LABS: HEMATOCRIT 27.6 % (36-48); MEAN CORPUSCULAR HEMOGLOBIN 19.9 pg (27.0-33.0); MEAN CORPUSCULAR HGB CONC 29.3 g/dL (32.0-36.0); MEAN CORPUSCULAR VOLUME 67.8 fL (79-99); RED BLOOD CELL COUNT(AUTO) 4.07 MIL/uL (4.00-5.50); RED CELL DISTRIBUTION WIDTH 22.7 % (11.0-15.5); WHITE BLOOD COUNT (AUTO) 6.6 K/uL (4.8-10.8)
[2024-06-14 04:59] LABS: ALBUMIN 3.2 g/dL (3.5-5.0); BILIRUBIN,TOTAL 0.2 mg/dL (0.2-1.0); CREATININE 0.6 mg/dL (0.5-1.0); MAGNESIUM 1.9 mg/dL (1.80-2.40); POTASSIUM 3.7 mmol/L (3.5-5.1); TOTAL PROTEIN, SERUM 6.4 g/dL (6.0-8.3)
[2024-06-14 08:00] VITALS: BP 116/74; PULSE 93; RESP 18; TEMP 98.5
[2024-06-14 08:35] VITALS: O2SAT 93
[2024-06-14] MEDS ORDERED: PANTOPrazole 40 MG TAB DR PO SCH (09:00)
--- NOTE | 2024-06-14 09:29 | NUR ---
DR GARNICA/OBGYN DR EUGENE IS THE OBGYN ROUNDING TODAY. SPOKE WITH ANNETTE REGARDING NEW CONSULT. SHE STATES SHE WILL SEND THE PAGE OUT. CALL BACK NUMBER PROVIDED. PLAN OF CARE ON GOING.
--- NOTE | 2024-06-14 10:31 | PN ---
[facility] PROGRESS NOTE Date of Service: Jun 14, 2024 Time of Service: 10:30 SUBJECTIVE: 06/12 The patient has been seen and examined, no acute events overnight, comfortable in bed, BP 129/79, afebrile, saturating normal on room air. Hemoglobin dropped to 6.0, hematocrit 21.0. Per discussion with the RN, patient refusing blood transfusion, however upon my visit, she has consent to blood transfusion if needed. She admits heavy periods, currently having her menstrual period. Denies melena, no nausea, no vomiting, no abdominal discomfort. We will repeat CBC as well as iron level panel, if hemoglobin still low, she is in agreement to transfuse 1 unit of PRBC. We have requested GI consultation as well. 06/13 the patient has been seen and examined, just had EGD, tolerated well. Findings reviewed, discussed with the patient. She got 1 unit of PRBC transfused yesterday, tolerated well, hemoglobin improved to 8.0. She is currently having her menstrual period. BP 124/63, afebrile, saturating normal on room air. Ultrasound transvaginal non-OB done yesterday, to fibrosis in the posterior uterine fundus, largest is 3.3 cm, otherwise unremarkable exam. Findings discussed with the patient. We will request manager sap consultation. Findings of EGD as follows: -normal examined duodenum. -normal esophagus. -gastritis. Biopsied. 06/14 patient is seen and examined at bedside, no acute events overnight, hemodynamically stable, alert oriented x3, hemoglobin stable at 8.6, no chest pain, no shortness a breath, no nausea, no vomiting. Currently pending manager sap consultation. If no plan for procedure during this hospitalization possible discharge home today. Discussed with the patient, in agreement. REVIEW OF SYSTEMS ROS reviewed with patient. All pertinent positives mentioned above. Otherwise negative, noncontributory, or non-pertinent. PHYSICAL EXAM GENERAL APPEARANCE: The patient is awake, alert, and oriented, in no acute cardiopulmonary distress. NEUROLOGICAL: Cranial nerves II-XII grossly intact. Motor is 5/5 in bilateral upper and lower extremities proximal to distal. No sensory deficits. HEENT: Face is symmetric. Pupils are equal and reactive. Extraocular movements are intact. NECK: Supple. No JVD. No thyromegaly. No submental, submandibular, pre- /postauricular, occipital or supraclavicular lymphadenopathy. CHEST: Normal chest expansion. No Telemetry. LUNGS: Absence of any rales, rhonchi or any wheezing. CARDIOVASCULAR: Regular. S1 and S2 normal. No appreciable rubs, murmurs or gallops. ABDOMEN: Soft, nontender, and nondistended. There is no rebound, voluntary guarding, or rigidity. : Deferred. No Ruiz. EXTREMITIES: Non-edematous and not cyanotic. No clubbing. Good capillary refill. SKIN: No skin breakdown. Vital Signs (last 8hr) Date Time Temp Pulse Resp B/P (MAP) Pulse Ox O2 Delivery O2 Flow Rate FiO2 06/14/24 08:35 93 Room Air* 0 21 06/14/24 08:00 98.4 93 18 116/74 90 Room Air 21 06/14/24 04:04 98.6 92 18 109/67 100 Room Air LABS: Laboratory: Test 06/14/24 05:44 06/14/24 04:14 Range/Units Whole Blood Glucose 91 70-110 MG/DL White Blood Count 6.6 4.8-10.8 K/uL Red Blood Count 4.07 4.00-5.50 MIL/uL Hemoglobin 8.1 L 12.0-16.0 g/dL Hematocrit 27.6 L 36-48 % Mean Corpuscular Volume 67.8 L 79-99 fL Mean Corpuscular Hemoglobin 19.9 L 27.0-33.0 pg Mean Corpuscular Hemoglobin Concent 29.3 L 32.0-36.0 g/dL Red Cell Distribution Width 22.7 H 11.0-15.5 % Platelet Count 213 130-400 K/uL Mean Platelet Volume 10.0 7.5-10.5 fL Nucleated Red Blood Cells 0.0 0.0-0.19 % Sodium Level 142 136-145 mmol/L Potassium Level 3.7 3.5-5.1 mmol/L Chloride Level 107 101-111 mmol/L Carbon Dioxide Level 25 21-32 mmol/L Blood Urea Nitrogen 13 7-18 mg/dL Creatinine 0.6 0.5-1.0 mg/dL Glomerular Filtration Rate Calc 123 >90 mL/min Random Glucose 92 70-105 mg/dL Total Calcium 8.4 L 8.5-10.1 mg/dL Magnesium Level 1.90 1.80-2.40 mg/dL Total Bilirubin 0.2 # 0.2-1.0 mg/dL Aspartate Amino Transf (AST/SGOT) 11 10-37 U/L Alanine Aminotransferase (ALT/SGPT) 11 L 12-78 U/L Alkaline Phosphatase 52 50-136 U/L Total Protein 6.4 6.0-8.3 g/dL Albumin 3.2 L 3.5-5.0 g/dL Current Medications Medications (Trade) Dose Ordered Sig/Myron Route PRN Reason Start Time Stop Time Status Last Admin Dose Admin Acetaminophen (TYLenol 325MG TAB) 650 mg Q6H PRN PO FEVER/MILD PAIN LEVEL 1-3 06/11/24 21:30 07/11/24 21:29 06/12/24 08:59 650 MG Acetaminophen (TYLenol 650MG SUPPOSITORY) 650 mg Q6H PRN RC FEVER / MILD PAIN 1-3 IF NPO 06/11/24 21:30 07/11/24 21:29 Ferrous Sulfate (Ferrous Sulfate) 325 mg BID PO 06/11/24 21:40 07/11/24 21:39 06/14/24 09:16 325 MG Hydralazine HCl (APRESOLine 20MG INJ) 10 mg Q2H PRN IV SBP GREATER THAN 160 06/11/24 21:30 06/13/24 12:46 DC Insulin Human Regular (humuLIN R 100 UNIT/ML 3ML) INSULIN SLIDING SCAL... ACHS SQ 06/12/24 07:30 06/13/24 12:46 DC Lactated Ringer's 1,000 ml @ 75 mls/hr [id number] IV 06/11/24 21:30 06/13/24 12:46 DC 06/12/24 13:26 75 MLS/HR Ondansetron HCl (zoFRAN 4MG INJ) 4 mg Q6H PRN IVP NAUSEA/VOMITING 06/11/24 21:30 07/11/24 21:29 06/12/24 00:30 4 MG Pantoprazole Sodium (PROTonix 40MG INJ) 40 mg BID IVP 06/12/24 09:00 06/13/24 12:46 DC 06/13/24 12:46 40 MG Pantoprazole Sodium (PROTonix 40MG TAB) 40 mg BID PO 06/13/24 21:00 07/13/24 20:59 06/14/24 09:16 40 MG Pantoprazole Sodium (PROTonix 40MG TAB) 40 mg DAILY PO 06/14/24 09:00 06/13/24 20:58 DC Temazepam (restORIL 15 MG CAP) 15 mg HS PRN PO INSOMNIA/SLEEP 06/11/24 21:30 07/11/24 21:29 DIAGNOSTICS / RADIOLOGY: [ ] ASSESSMENT: Upper GI bleed, secondary to gastritis POA, Abnormal vaginal bleed secondary to uterine fibroids, POA Acute blood loss anemia, POA Acute dehydration 2/2 above (elevated BUN and ketonuria), POA MONSE, GFR 88, POA Hyperglycemia, POA Elevated lipase, POA Chronic gastritis,. Dysfunctional uterine bleeding,. Obesity, BMI 33.5 PLAN: Remains admitted to the medical floor Change Protonix to 40 mg p.o. daily Follow CBC transfuse as needed Advanced diet as tolerated Ferrous mg p.o. b.i.d.. 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 labs Disposition: Pending manager sap input and recommendations. Plan of action discussed, all questions answered, agreed and understood the information provided. DALLAS FISHER MD Jun 14, 2024 10:31
[2024-06-14 12:00] VITALS: BP 106/69; PULSE 92; RESP 18; TEMP 98.2
[2024-06-14 16:00] VITALS: BP 105/69; PULSE 94; RESP 18; TEMP 98.2
--- NOTE | 2024-06-14 17:35 | NUR ---
DR GARNICA IN AT BEDSIDE. IS OKAY TO DC PATIENT HOME AND TO FOLLOW UP WITH HIM WHEN ABLE. IS SIGNING OFF FOR DC.
--- NOTE | 2024-06-14 18:10 | NUR ---
DISCHARGE PATIENT HAS BEEN DISCHARGED HOME. PIV REMOVED. PRESSURE GAUZE AND TAPE APPLIED TO SITE. PATIENT AND PARTNER AT BEDSIDE BOTH VERBALIZE UNDERSTANDING OF DISCHARGE ORDERS. PATIENT PROVIDED WITH A WORK EXCUSE. NEW PRESCRIPTIONS HAVE BEEN SENT TO PATIENT'S PREFERRED PHARMACY. PATIENT PROVIDED WITH NUMBER TO SEE DR GARNICA DUE TO CLINIC BEING CLOSED. PATIENT WHEELED DOWN TO PRIVATE AUTOMOBILE BY CENTRAL STATION OPERATOR, ACCOMPANIED BY SIGNIFICANT OTHER.
--- NOTE | 2024-06-14 20:00 | CONS ---
HISTORY OF PRESENT ILLNESS: The patient is a 33-year-old female, para 0, whose last menstrual period was noted to be in May, was asked to see the patient due to history of heavy menses. Sonogram performed showed a slightly enlarged uterus associated with leiomyoma, hemoglobin was 8.1, but has been stable. The patient states para 0, not sexually active. Last Pap smear was approximately 2-3 months ago. She has been followed at [facility] in [place]. The patient was placed on Nexplanon maximum of 1-1/2 years ago due to abnormal uterine bleeding. PAST MEDICAL HISTORY: Significant for anemia. She denies any history of hypertension, heart disease, COPD. PAST SURGICAL HISTORY: Noncontributory. FAMILY HISTORY: Noncontributory. SOCIAL HISTORY: No tobacco, alcohol or drug usage. REVIEW OF SYSTEMS: CONSTITUTIONAL: Does refer to episodes of fatigue. CARDIOVASCULAR: No shortness of breath or chest pain. GASTROINTESTINAL: Diarrhea, constipation, or change in bowel habitus. GENITOURINARY: She denies any frequency, urgency, or dysuria. MUSCULOSKELETAL: No joint pain. NEUROLOGIC: No headache or seizure activity. PHYSICAL EXAMINATION: GENERAL: She is alert and oriented, in no acute distress. VITAL SIGNS: She is afebrile. Vital signs are stable. ABDOMEN: Soft, nontender. No guarding or rebound. EXTREMITIES: Full range of motion. PELVIC: The patient is deferred. IMPRESSION: A 33-year-old female with abnormal uterine bleeding. At this point, the patient was to be discharged home on p.o. iron. I explained to the patient to follow up in our office for further evaluation and follow up. Management options have thoroughly been discussed with the patient. Hormonal versus surgical options have been discussed. The patient understands and will follow up in our office and see us as an outpatient. TID: [id number] RECEIPT: [id number]
--- NOTE | 2024-06-14 21:03 | PN ---
GASTROENTEROLOGY PROGRESS NOTE Date of Visit: Jun 14, 2024 Time of Visit: 21:03 Events / Notes: [ ] Review of Systems: CONSTITUTIONAL: No malaise or change in sensation of wellbeing. ENMT: No rhinorrhea, otorrhea, sinus pain, ear ache. CARDIOVASCULAR: No angina, palpitations, orthopnea or paroxysmal dyspnea. RESPIRATORY: No SOB. GASTROINTESTINAL: No abdominal pain, nausea, vomiting, diarrhea, hematemesis, melena or change in the patient's habitual bowel movements consistency/number. GENITOURINARY: No dysuria, hematuria or change in bladder continence. MUSCULOSKELETAL: No new muscle pain or decrease in muscular strength. No new joint swelling, redness or tenderness. SKIN: No new rash. Physical Exam: GEN: Awake, alert, oriented in person, time and place, and in no acute distress. HEENT: No sinus tenderness. Tympanic membranes were not examined. No rhinorrhea. Oral pharyngeal mucosa is pink, moist and within normal limits. Neck is supple with no cervical lymphadenopathy, thyromegaly or JVD. CHEST: Inspection, palpation and percussion of the chest were unremarkable. Lung auscultation revealed normal breath sounds bilaterally. CARDIAC: PMI is within normal limits. Heart sounds are regular. Normal S1, S2. No gallop or murmur. ABD: Soft, non-tender and not distended. No peritoneal signs on palpation. No organomegaly. Normal bowel sounds. EXT: No cyanosis or clubbing. No edema. SKIN: Intact. No rashes. JOINTS: No evidence of synovitis or acute arthritis. NEURO: Alert and oriented to name, place and person. Cranial nerve examination is unremarkable. No focal motor deficits. Normal speech. Gait is normal. Strength is normal. Vital Signs (last 8hr) Date Time Temp Pulse Resp B/P (MAP) Pulse Ox O2 Delivery O2 Flow Rate FiO2 06/14/24 16:00 98.2 94 18 105/69 99 Room Air 21 Laboratory: [ ] Laboratory: Test 06/14/24 15:46 06/14/24 04:14 Range/Units Whole Blood Glucose 96 70-110 MG/DL White Blood Count 6.6 4.8-10.8 K/uL Red Blood Count 4.07 4.00-5.50 MIL/uL Hemoglobin 8.1 L 12.0-16.0 g/dL Hematocrit 27.6 L 36-48 % Mean Corpuscular Volume 67.8 L 79-99 fL Mean Corpuscular Hemoglobin 19.9 L 27.0-33.0 pg Mean Corpuscular Hemoglobin Concent 29.3 L 32.0-36.0 g/dL Red Cell Distribution Width 22.7 H 11.0-15.5 % Platelet Count 213 130-400 K/uL Mean Platelet Volume 10.0 7.5-10.5 fL Nucleated Red Blood Cells 0.0 0.0-0.19 % Sodium Level 142 136-145 mmol/L Potassium Level 3.7 3.5-5.1 mmol/L Chloride Level 107 101-111 mmol/L Carbon Dioxide Level 25 21-32 mmol/L Blood Urea Nitrogen 13 7-18 mg/dL Creatinine 0.6 0.5-1.0 mg/dL Glomerular Filtration Rate Calc 123 >90 mL/min Random Glucose 92 70-105 mg/dL Total Calcium 8.4 L 8.5-10.1 mg/dL Magnesium Level 1.90 1.80-2.40 mg/dL Total Bilirubin 0.2 # 0.2-1.0 mg/dL Aspartate Amino Transf (AST/SGOT) 11 10-37 U/L Alanine Aminotransferase (ALT/SGPT) 11 L 12-78 U/L Alkaline Phosphatase 52 50-136 U/L Total Protein 6.4 6.0-8.3 g/dL Albumin 3.2 L 3.5-5.0 g/dL Current Medications Medications (Trade) Dose Ordered Sig/Myron Route PRN Reason Start Time Stop Time Status Last Admin Dose Admin Acetaminophen (TYLenol 325MG TAB) 650 mg Q6H PRN PO FEVER/MILD PAIN LEVEL 1-3 06/11/24 21:30 06/14/24 18:11 DC 06/12/24 08:59 650 MG Acetaminophen (TYLenol 650MG SUPPOSITORY) 650 mg Q6H PRN RC FEVER / MILD PAIN 1-3 IF NPO 06/11/24 21:30 06/14/24 18:11 DC Ferrous Sulfate (Ferrous Sulfate) 325 mg BID PO 06/11/24 21:40 06/14/24 18:11 DC 06/14/24 09:16 325 MG Hydralazine HCl (APRESOLine 20MG INJ) 10 mg Q2H PRN IV SBP GREATER THAN 160 06/11/24 21:30 06/13/24 12:46 DC Insulin Human Regular (humuLIN R 100 UNIT/ML 3ML) INSULIN SLIDING SCAL... ACHS SQ 06/12/24 07:30 06/13/24 12:46 DC Lactated Ringer's 1,000 ml @ 75 mls/hr [id number] IV 06/11/24 21:30 06/13/24 12:46 DC 06/12/24 13:26 75 MLS/HR Ondansetron HCl (zoFRAN 4MG INJ) 4 mg Q6H PRN IVP NAUSEA/VOMITING 06/11/24 21:30 06/14/24 18:11 DC 06/12/24 00:30 4 MG Pantoprazole Sodium (PROTonix 40MG INJ) 40 mg BID IVP 06/12/24 09:00 06/13/24 12:46 DC 06/13/24 12:46 40 MG Pantoprazole Sodium (PROTonix 40MG TAB) 40 mg BID PO 06/13/24 21:00 06/14/24 18:11 DC 06/14/24 09:16 40 MG Pantoprazole Sodium (PROTonix 40MG TAB) 40 mg DAILY PO 06/14/24 09:00 06/13/24 20:58 DC Temazepam (restORIL 15 MG CAP) 15 mg HS PRN PO INSOMNIA/SLEEP 06/11/24 21:30 06/14/24 18:11 DC Diagnostics / Radiology: [COPY/PASTE HERE IF NO REPORTS PLEASE DELETE SECTION] Assessment: Hematemesis SUHAS Dysmenorrhea Plan: Consider gyne consult W[employer] GRADER Jun 14, 2024 21:03
--- NOTE | 2024-06-15 08:23 | DS ---
Discharge Summary Hospital Course Summary: Date of service 06/14/2024 The patient initially admitted to the hospital June 11, 2024 with the following history of the present illness: Ms. Amador is a 33-year-old female gastritis, obesity, dysmenorrhea with heavy vaginal bleeding who presented to the emergency room for evaluation of nausea, vomiting, and diarrhea. The patient's partner also reported that she saw moderate amount blood in the emesis. Never had these symptoms before. She received Wegovy injection the prior to presented to the ER, for the 1st time for weight loss. She also gave a history of dysmenorrhea with the heavy bleeding monthly cycle with clots. She saw her Ob and has been placed on hormonal treatment. This has not improved and currently she is on her menses. ED v/s: Temperature 97.8 pulse 116 respirations 20 blood pressure 118/77 with a pulse oximetry of 100% on room air. In the emergency room Labs: WBC 13.9 hemoglobin of 7.9. BUN and creatinine of 23 and 0.9. T In ED patient was administered Protonix 40 mg IV, NS 500 bolus, Zofran4 mg IV. ED physician request patient be admitted with the diagnosis of nausea, vomiting, gastritis, adverse effect of medication, upper GI bleed. 06/12 The patient has been seen and examined, no acute events overnight, comfortable in bed, BP 129/79, afebrile, saturating normal on room air. Hemoglobin dropped to 6.0, hematocrit 21.0. Per discussion with the RN, patient refusing blood transfusion, however upon my visit, she has consent to blood transfusion if needed. She admits heavy periods, currently having her menstrual period. Denies melena, no nausea, no vomiting, no abdominal discomfort. We will repeat CBC as well as iron level panel, if hemoglobin still low, she is in agreement to transfuse 1 unit of PRBC. We have requested GI consultation as well. 06/13 the patient has been seen and examined, just had EGD, tolerated well. Findings reviewed, discussed with the patient. She got 1 unit of PRBC tr ansfused yesterday, tolerated well, hemoglobin improved to 8.0. She is currently having her menstrual period. BP 124/63, afebrile, saturating normal on room air. Ultrasound transvaginal non-OB done yesterday, to fibrosis in the posterior uterine fundus, largest is 3.3 cm, otherwise unremarkable exam. Findings discussed with the patient. We will request flight service specialist consultation. Findings of EGD as follows: -normal examined duodenum. -normal esophagus. -gastritis. Biopsied. 06/14 patient is seen and examined at bedside, no acute events overnight, hemodynamically stable, alert oriented x3, hemoglobin stable at 8.6, no chest pain, no shortness a breath, no nausea, no vomiting. Patient evaluated by flight service specialist, ester for the patient to be discharged home and follow up as an outpatient in the clinic. Hormonal versus surgical options were discussed with the patient. The patient understood the information provided and we will follow up as an outpatient. Clinic Physician Director(s): GI and flight service specialist. Assessment/Plan: Final diagnoses Upper GI bleed, secondary to gastritis POA, Abnormal vaginal bleed secondary to uterine fibroids, POA Acute blood loss anemia, POA Acute dehydration 2/2 above (elevated BUN and ketonuria), POA MONSE, GFR 88, POA Hyperglycemia, POA Elevated lipase, POA Chronic gastritis,. Dysfunctional uterine bleeding,. Obesity, BMI 33.5 Discharge Instructions: Patient to follow with primary care physician as an outpatient, with GI and flight service specialist as an outpatient and to return to the hospital for condition changes. I advised her to have a repeat CBC in the next 2-3 days to see if her hemoglobin is below seven. If hemoglobin is below seven I advised her to present to the hospital emergency room for transfusion of blood. Patient agreed and understood the information provided. Home Medications: Active Scripts Ferrous Sulfate (Ferrous Sulfate) 325 Mg (65 Mg Iron) Ectab, 1 TAB PO DAILY for 30 Days, #30 TAB 1 Refill Prov:DALLAS FISHER MD 06/13/24 Ondansetron (Ondansetron Odt) 4 Mg Tab.rapdis, 4 MG PO Q6HPRN PRN for nausea, #16 TAB 0 Refills Prov:REGINALD GARDNER MD 06/11/24 Time spent arranging discharge: 31-60 minutes DALLAS FISHER MD Jun 15, 2024 08:23
== END 2024-06-14 18:10 | disposition home or self-care (01) ==
LOC: EDH 18:43 → EDHIP 21:05 → 3BH 21:45
PROVIDERS: ADMIT Internal Medicine; ATTEND Internal Medicine
DX: K29.50 Unspecified chronic gastritis without bleeding (principal); N93.8 Other specified abnormal uterine and vaginal bleeding; D25.9 Leiomyoma of uterus, unspecified; E86.0 Dehydration; E66.9 Obesity, unspecified; N17.9 Acute kidney failure, unspecified; R73.9 Hyperglycemia, unspecified; R82.4 Acetonuria; R74.8 Abnormal levels of other serum enzymes; R11.2 Nausea with vomiting, unspecified; D62 Acute posthemorrhagic anemia; I10 Essential (primary) hypertension; Z68.33 Body mass index [BMI] 33.0-33.9, adult; Z79.899 Other long term (current) drug therapy
CPT/HCPCS: 96374; 96361 ×2; 96375; 99284; 80048; 84703; 83690; 85025; 86850; 86900; 86901; 86923 ×2; 36415 ×4; 71045; 96376 ×2; 84443; 83540; 83550; 83735 ×3; 84100; 80053 ×3; 85027 ×5; 85610; 85014; 85018; 82948 ×10; 81001; 76830; 36430; 88305 ×2; 88312 ×2; 43239; G0378 ×62; J7040; J7120; J2405 ×2; J2470 ×4; P9016 ×2; J2704; A4215; A4223; A4222; A4221; A4663; A4606; J3490

== ENCOUNTER 2024-07-19 02:10 | Emergency (ER) | payer BC ==
[~2024-07-19] VITALS: Ht 147.3 cm; Wt 72.6 kg
[~2024-07-19 02:10] MED LIST: FERS325 PO; ONDA-243 PO
[2024-07-19 02:31] VITALS: BP 125/66; PULSE 81; RESP 18; TEMP 98.5; O2SAT 97
[2024-07-19 02:36] LABS: BASOPHILS # (AUTO) 0.03 K/uL (0.00-0.20); BASOPHILS % (AUTO) 0.4 % (0.0-5.0); EOSINOPHILS # (AUTO) 0.15 K/uL (0.00-0.70); IMMATURE GRANULOCYTE ABSOLUTE 0.02 K/uL (0-1); LYMPHOCYTES # (AUTO) 2.4 K/uL (1.0-4.8); LYMPHOCYTES % (AUTO) 31.2 % (21.0-51.0); MEAN CORPUSCULAR HEMOGLOBIN 24.7 pg (27.0-33.0); MEAN CORPUSCULAR HGB CONC 30.8 g/dL (32.0-36.0); MEAN CORPUSCULAR VOLUME 80.3 fL (79-99); MONOCYTES # (AUTO) 0.4 K/uL (0.1-1.0); MONOCYTES % (AUTO) 5.2 % (3.0-13.0); NEUTROPHILS # (AUTO) 4.7 K/uL (1.8-7.7); NEUTROPHILS % (AUTO) 60.9 % (40.0-77.0); PLATELET COUNT (AUTO) 227 K/uL (130-400); RED BLOOD CELL COUNT(AUTO) 4.73 MIL/uL (4.00-5.50); WHITE BLOOD COUNT (AUTO) 7.7 K/uL (4.8-10.8)
--- NOTE | 2024-07-19 02:48 | ERN ---
ED Note History of Present Illness Stated Complaint: VAGINAL BLEEDING Chief Complaint: Vaginal Problems/Bleeding Time Seen by MD: 02:20 Dictation: The patient is a 33-year-old female patient with a medical history of fibroids and gastritis presented to the emergency department due to experiencing multiple clots during her menstrual cycle over the past six hours. This incident occurs on the second day of her menstrual cycle. The patient has a documented history of dysmenorrhea and menorrhagia and has experienced similar issues in the past. Last month, she was hospitalized, received a blood transfusion, and was diagnosed with fibroids located in the posterior fundus via ultrasound. Following her discharge, she was prescribed ferrous sulfate and advised to consult an OBGYN as an outpatient. However, she has not yet been able to attend this appointment due to transportation difficulties, although she is scheduled to see the OBGYN in July. The patient has been using Nexplanon as a contraceptive method for the past 1.5 years to manage dysfunctional uterine bleeding. She reports no symptoms of dizziness, lightheadedness, history of falls, or gastrointestinal bleeding, including blood in the stool, hematemesis, or melena. Allergies: Coded Allergies: No Known Allergies (Unverified Allergy, Unknown, 06/11/24) Home Meds Active Scripts Ferrous Sulfate (Ferrous Sulfate) 325 Mg (65 Mg Iron) Ectab, 1 TAB PO DAILY for 30 Days, #30 TAB 1 Refill Prov:DALLAS FISHER MD 06/13/24 Ondansetron (Ondansetron Odt) 4 Mg Tab.rapdis, 4 MG PO Q6HPRN PRN for nausea, #16 TAB 0 Refills Prov:REGINALD GARDNER MD 06/11/24 Past Medical History Past Medical History: Anemia, Other Additional Past Medical Hx: GASTRITIS Surgical History: None Family History: Negative Social History: Negative History: Not Applicable LMP: Jul 19, 2024 Review of System Dictation REVIEW OF SYSTEMS CONSTITUTIONAL: Denies fevers, chills, or night sweats. No unintentional weight loss reported. NEUROLOGICAL: Denies headache, amaurosis fugax, motor weakness, sensory deficit, vertigo/spinning sensation, gait abnormalities, or tremors. ENT: No hearing loss, otalgia, otorrhea, rhinitis, rhinorrhea, hoarseness, or sore throat. CARDIOVASCULAR: Denies any exertional angina, dyspnea on exertion, orthopnea, paroxysmal nocturnal dyspnea, palpitations, life-threatening arrhythmias, claudication. PULMONARY: Denies any shortness of breath, cough, phlegm/sputum, hemoptysis, pleuritic chest pain. SLEEP: Denies morning headaches, daytime somnolence or napping. Denies difficulty falling asleep, staying asleep, waking from sleep. Denies knowledge of snoring. GASTROINTESTINAL: Denies any type of dysphagia to either liquids or solids. Denies nausea, vomiting, pyrosis, early satiety, abdominal pain, diarrhea, constipation, or changes in stool consistency or caliber. Denies coffee-ground emesis, hematemesis, hematochezia, or melanotic stools. GENITOURINARY: Complaints of multiple clots and heavy vaginal bleeding, Denies frequency, urgency, nocturia, hematuria or incontinence (Storage/Irritative symptoms.) Low urinary stream, straining to void, urinary intermittency or hes itancy, splitting of the voiding stream, terminal dribbling. ENDOCRINOLOGIC: Denies polyuria, polydipsia, polyphagia or heat/cold intolerances. HEMATOLOGIC: Denies thrombophilia/previous clots, or coagulopathy/bleeding disorders. ONCOLOGIC: Denies personal history of malignancy. DERMATOLOGIC: Denies rashes or pruritus. PSYCHIATRIC: Denies any suicidal or homicidal ideation. Denies hallucinations. Initial Vital Sign VS Vital Signs Date Time Temp Pulse Resp B/P (MAP) Pulse Ox O2 Delivery O2 Flow Rate FiO2 07/19/24 02:11 98.8 76 18 142/89 98 Room Air 0 07/19/24 02:31 21 Physical Exam Dictation PHYSICAL EXAM GENERAL APPEARANCE: The patient is awake, alert, and oriented, in no acute cardiopulmonary distress. NEUROLOGICAL: Cranial nerves II-XII grossly intact. Motor is 5/5 in bilateral upper and lower extremities proximal to distal. No sensory deficits. HEENT: Face is symmetric. Pupils are equal and reactive. Extraocular movements are intact. NECK: Supple. No JVD. No thyromegaly. No submental, submandibular, pre-/postauricular, occipital or supraclavicular lymphadenopathy. CHEST: Normal chest expansion. No Telemetry. LUNGS: Absence of any rales, rhonchi or any wheezing. CARDIOVASCULAR: Regular. S1 and S2 normal. No appreciable rubs, murmurs or gallops. ABDOMEN: Soft, nontender, and nondistended. There is no rebound, voluntary guarding, or rigidity. : Deferred. No Ruiz. EXTREMITIES: Non-edematous and not cyanotic. No clubbing. Good capillary refill. SKIN: No skin breakdown. Results (Laboratory/Radiology) Laboratory/Radiology Laboratory Tests Test 07/19/24 02:32 White Blood Count 7.7 K/uL (4.8-10.8) Red Blood Count 4.73 MIL/uL (4.00-5.50) Hemoglobin 11.7 g/dL (12.0-16.0) L Hematocrit 38.0 % (36-48) Mean Corpuscular Volume 80.3 fL (79-99) Mean Corpuscular Hemoglobin 24.7 pg (27.0-33.0) L Mean Corpuscular Hemoglobin Concent 30.8 g/dL (32.0-36.0) L Red Cell Distribution Width % (11.0-15.5) Platelet Count 227 K/uL (130-400) Mean Platelet Volume 10.8 fL (7.5-10.5) H Immature Granulocyte % (Auto) 0.3 % (0-1) Neutrophils (%) (Auto) 60.9 % (40.0-77.0) Lymphocytes (%) (Auto) 31.2 % (21.0-51.0) Monocytes (%) (Auto) 5.2 % (3.0-13.0) Eosinophils (%) (Auto) 2.0 % (0.0-8.0) Basophils (%) (Auto) 0.4 % (0.0-5.0) Neutrophils # (Auto) 4.7 K/uL (1.8-7.7) Lymphocytes # (Auto) 2.4 K/uL (1.0-4.8) Monocytes # (Auto) 0.4 K/uL (0.1-1.0) Eosinophils # (Auto) 0.15 K/uL (0.00-0.70) Basophils # (Auto) 0.03 K/uL (0.00-0.20) Absolute Immature Granulocyte (auto 0.02 K/uL (0-1) Nucleated Red Blood Cells 0.0 % (0.0-0.19) Red Blood Cell Morphology See comments Prothrombin Time 10.1 SEC (9.6-11.6) Prothromb Time International Ratio <= 0.93 (0.85-1.15) Activated Partial Thromboplast Time 28.5 SEC (26.3-35.5) Sodium Level 141 mmol/L (136-145) Potassium Level 3.7 mmol/L (3.5-5.1) Chloride Level 107 mmol/L (101-111) Carbon Dioxide Level 27 mmol/L (21-32) Blood Urea Nitrogen 21 mg/dL (7-18) H Creatinine 0.6 mg/dL (0.5-1.0) Glomerular Filtration Rate Calc 123 mL/min (>90) Random Glucose 157 mg/dL (70-105) H Total Calcium 8.8 mg/dL (8.5-10.1) ED Course ED Course Orders Procedure Category Date Status Time Cbc With Differential LAB 07/19/24 Complete 02: Basic Metabolic Panel LAB 07/19/24 Complete 02: Pt And Ptt LAB 07/19/24 Complete 02:29 Vital Signs Date Time Temp Pulse Resp B/P (MAP) Pulse Ox O2 Delivery O2 Flow Rate FiO2 07/19/24 02:31 98.4 81 18 125/66 97 Room Air* 0 21 07/19/24 02:11 98.8 76 18 142/89 98 Room Air 0 02:15 The patient was examined in ED room 5. She appears hemodynamically stable, does not appear to be in cardiopulmonary distress. Vitals are, temperature 98.8, pulse rate 76, respiratory rate 18, blood pressure 142/89, SpO2 98% on room air. The patient appears comfortable and provides detailed history of current medical condition. The patient has underlying history of menorrhagia and dysmenorrhea. We will order basic labs and evaluate if the patient requires blood transfusion during this ER visit. Once laboratory investigations are returned, we will decide if the patient requires an emergency treatment or inpatient hospitalization. We will continue closely monitor the patient. 03:15 Laboratory results did not show any significant abnormalities. Hemoglobin level is 11.7. Results were discussed with the patient. She was instructed to continue using control and ferrous sulphate. At this time, we do not think that the patient requires any emergency treatment or inpatient hospitalization. The plan was discussed with the patient. We emphasized the importance of follow up appointment with OBGYN as an outpatient. The patient is medically stable for discharge. Medical Decision Making MDM MDM Differential diagnosis: Menorrhagia, Dysmenorrhea Rationale: Tests considered and ordered secondary to shared decision making include: Previous outside records reviewed: Old ER visits. Risk of complication and/or morbidity or mortality of patient management: None Medications-Per medication reconciliation Need for hospitalization: Patient does not meet criteria for hospitalization. Need for emergency major/minor surgery: No There are no social concerns with this patient. Prescription drug management Prescriptions will include symptomatic care Patient's prior external medical records from other ER visits were reviewed by me as indicated. Prior testing and results from previous visits were reviewed. Prior tests were taken into account with medical decision making and resource utilization, independent historian/historians were used to obtain complete medical history. I independently interpreted the test that were performed, results were reviewed by me and considered findings on radiology if ordered. DX & DISP Disposition: Discharge Departure Impression: Primary Impression: Menorrhagia Additional Impression: Dysmenorrhea Condition: Stable Additional Instructions: Continue taking daily Ferrous sulphate as prescribed. Eat well: Eat a diet high in iron and vitamin C, and try to avoid processed sugar, trans-fats, and starchy carbs. You can also try cooking in cast-iron pots to increase your iron intake. Avoid certain substances: Avoid excessive alcohol and caffeine, which can impact your menstrual flow. Get enough rest: Try to get plenty of rest. Follow up with your OBGYN as an outpatient for further management of menorrhagia and dysmenorrhea. Visit the nearest emergency department or call 911 if the symptoms does not get better or gets worse. Referrals: SELF,REFERRAL (PCP) I have reviewed the case, and I agree with, Diagnosis and Plan I have examined patient, & reviewed all documents, & agreed W/ the Diagnosis, and Plan I performed a substantive portion of the visit. I have reviewed and personally made and approve the management plan that is documented in the notes by myself with JESÚS/resident. I acknowledged full responsibility for the patient's management plan. SEUN WELLS MD Jul 19, 2024 02:48 PRINCESS ACEVEDO DO Jul 19, 2024 04:48
[2024-07-19 02:49] LABS: CREATININE 0.6 mg/dL (0.5-1.0); POTASSIUM 3.7 mmol/L (3.5-5.1)
[2024-07-19 02:50] LABS: INR <= 0.93 (0.85-1.15); PROTHROMBIN TIME 10.1 SEC (9.6-11.6)
[2024-07-19 02:51] LABS: PARTIAL THROMBOPLASTIN TIME 28.5 SEC (26.3-35.5)
[2024-07-20] MEDS ORDERED: IpraTROPium/alBUTERol SULFATE 3 ML SOLUTION IH ONE (22:35)
[2024-07-20] MEDS ORDERED: SODIUM CHLORIDE 3% FOR INHALATION 4 ML/AMP VIAL.NEB IH ONE (22:35)
== END 2024-07-19 03:26 | disposition home or self-care (01) ==
LOC: EDH 02:10
DX: N92.0 Excessive and frequent menstruation with regular cycle (principal); N94.6 Dysmenorrhea, unspecified; Z79.01 Long term (current) use of anticoagulants; Z79.899 Other long term (current) drug therapy
CPT/HCPCS: 36415; 80048; 85025; 85610; 85730; 99283

== ENCOUNTER 2024-12-09 19:28 | Emergency (ER) | payer BC ==
[~2024-12-09] VITALS: Ht 147.3 cm; Wt 78.0 kg
[2024-12-09 20:11] LABS: IMMATURE GRANULOCYTE ABSOLUTE 0.03 K/uL (0-1); NUCLEATED RED BLOOD CELLS 0.0 % (0.0-0.19); PLATELET COUNT (AUTO) 286 K/uL (130-400); RED BLOOD CELL COUNT(AUTO) 3.54 MIL/uL (4.00-5.50); RED CELL DISTRIBUTION WIDTH 12.9 % (11.0-15.5); WHITE BLOOD COUNT (AUTO) 10.7 K/uL (4.8-10.8)
[2024-12-09 20:24] LABS: CREATININE 0.8 mg/dL (0.5-1.0); GLOMERULAR FILTR. RATE CALC 100.0 mL/min (>90); GLUCOSE,RANDOM 138.0 mg/dL (70-105); SODIUM SERUM 141.0 mmol/L (136-145); UREA NITROGEN, BLOOD 20.0 mg/dL (7-18)
[2024-12-09 20:26] LABS: INR 1.07 (0.85-1.15)
[2024-12-09] MEDS: 0.9%NACL 1000ML 1,000 ML IV ONE (20:39)
--- NOTE | 2024-12-09 21:11 | HMCIMG ---
EXAMINATION: COMPLETE TRANSABDOMINAL AND TRANSVAGINAL ULTRASOUND OF PELVIS. CLINICAL HISTORY: Severe vaginal bleeding. LMP is 11/08/2024. The test is pending. COMPARISON: Ultrasound of the pelvis dated 06/12/2024. TECHNIQUE: Multiple real-time grayscale images of the pelvis were obtained with transabdominal and transvaginal transducers. In addition, color Doppler is medically necessary to perform to assess for vascularity and blood flow. FINDINGS: The uterus is anteverted, normal in caliber, and measures 9.1 x 5.3 x 4.8 cm in the craniocaudal, AP, and transverse dimensions, respectively. There is a pedunculated fibroid that measures 1.9 x 1.5 x 1.6 cm at the anterior wall, a subserosal fibroid that measures 1.4 x 1.3 x 1.6 cm, and an intramural fibroid that measures 4.8 x 5.6 x 4.7 cm in the anterior wall. The endometrium measures approximately 1.5 cm. The cervix appears normal. The right ovary is obscured by overlying bowel gas. The left ovary is normal in caliber and measures 1.7 x 1.4 x 1.7 cm. There is no free fluid in the cul-de-sac. IMPRESSION: Uterine fibroids with mild interval worsening. /Wells
--- NOTE | 2024-12-10 00:03 | ERN ---
General Chief Complaint: Vaginal Problems/Bleeding Stated Complaint: VAGINAL BLEEDING X 1 MONTH Time Seen by MD: 19:37 Time Seen by Midlevel: 19:37 Source: patient History of Present Illness Initial Comments The patient is a 34-year-old female with a past medical history of uterine fibroids presenting to the emergency department for evaluation of vaginal b leeding. The patient states she has been having vaginal bleeding for the last month but over the last24 hours and has increased in intensity. Allergies: Coded Allergies: No Known Allergies (Unverified Allergy, Unknown, 06/11/24) Home Meds Active Scripts Ferrous Sulfate (Ferrous Sulfate) 325 Mg (65 Mg Iron) Ectab, 1 TAB PO DAILY for 30 Days, #30 TAB 1 Refill Prov:DALLAS FISHER MD 06/13/24 Ondansetron (Ondansetron Odt) 4 Mg Tab.rapdis, 4 MG PO Q6HPRN PRN for nausea, #16 TAB 0 Refills Prov:REGINALD GARDNER MD 06/11/24 Past Medical History Past Medical History: Anemia, Uterine Fibroids, Other Medical History Other: GASTRITIS Past Surgical History: None Family History Family History: Negative Social History Social History: Negative Female( History) History: Not Applicable LMP: Nov 09, 2024 ROS Dictation CONSTITUTIONAL: Negative except for HPI HEAD/FACE: Negative except for HPI EENT: Negative except for HPI RESPIRATORY: Negative except for HPI GASTROINTESTINAL/ABDOMINAL: Negative except for HPI GENITOURINARY: Negative except for HPI MUSCULOSKELETAL: Negative except for HPI INTEGUMENTARY: Negative except for HPI NEUROLOGICAL/PSYCH: Negative except for HPI HEMATOLOGIC/LYMPHATIC: Negative except for HPI All Systems Negative, Except as noted above. 13 point review of systems assessed and all negative except for above. Physical Exam Physical Exam Dictation Vital Signs reviewed General Appearance: Alert, oriented x 3, no acute distress, well developed, nourished. Head and Face: non-traumatic. Eyes: PERRL, pink conjunctivas, eyelid no trauma, anterior chamber with arcus senilis. Ears: Pinnas intact and no signs of trauma or erythema ear canals clear and no discharge TM no erythema Nose: No discharge, no bleeding. Oropharynx: Mouth normal, tongue pink, pharynx clear,no erythema, tonsils no exudates, no abscesses noted, mucous membrane moist Neck: Supple, non-tender, no thyromegaly, no masses, no JVD, no bruits Breast:Deferred Chest:No tenderness, no crepitus, no paradoxical movement, no retractions Lungs:Clear, well-ventilated, symmetric, no rales, no wheezing, no rhonchi, no stridor, good breath sounds bilaterally Heart: Tachycardic, regular rhythm, no murmur, no gallops Vascular: no peripheral edema, Abdomen: Soft, positive bowel sounds, nondistended, no guarding, nontender, no rebound, no masses no hepatomegaly, no splenomegaly, no Echeverria's sign, no hernias. Rectal: Deferred Genital: Deferred Neurological: Normal speech, motor function intact, sensory function intact Musculoskeletal: Neck nontender, full range of motion, back nontender, full range of motion, Extremities: nontender, full range of motion Skin: Color pink, dry, no turgor, no rash, no lacerations, no abrasions, no contusions. Lymphatic: Deferred Results Laboratory and Microbiology Lab and Micro Result Laboratory Tests Test 12/09/24 20:01 White Blood Count 10.7 K/uL (4.8-10.8) Red Blood Count 3.54 MIL/uL (4.00-5.50) L Hemoglobin 10.2 g/dL (12.0-16.0) L Hematocrit 30.9 % (36-48) L Mean Corpuscular Volume 87.3 fL (79-99) Mean Corpuscular Hemoglobin 28.8 pg (27.0-33.0) Mean Corpuscular Hemoglobin Concent 33.0 g/dL (32.0-36.0) Red Cell Distribution Width 12.9 % (11.0-15.5) Platelet Count 286 K/uL (130-400) Mean Platelet Volume 10.7 fL (7.5-10.5) H Immature Granulocyte % (Auto) 0.3 % (0-1) Neutrophils (%) (Auto) 76.9 % (40.0-77.0) Lymphocytes (%) (Auto) 17.3 % (21.0-51.0) L Monocytes (%) (Auto) 5.1 % (3.0-13.0) Eosinophils (%) (Auto) 0.1 % (0.0-8.0) Basophils (%) (Auto) 0.3 % (0.0-5.0) Neutrophils # (Auto) 8.3 K/uL (1.8-7.7) H Lymphocytes # (Auto) 1.9 K/uL (1.0-4.8) Monocytes # (Auto) 0.6 K/uL (0.1-1.0) Eosinophils # (Auto) 0.01 K/uL (0.00-0.70) Basophils # (Auto) 0.03 K/uL (0.00-0.20) Absolute Immature Granulocyte (auto 0.03 K/uL (0-1) Nucleated Red Blood Cells 0.0 % (0.0-0.19) Prothrombin Time 11.3 SEC (9.6-11.6) Prothromb Time International Ratio 1.07 (0.85-1.15) Activated Partial Thromboplast Time 22.2 SEC (26.3-35.5) L Sodium Level 141 mmol/L (136-145) Potassium Level 3.2 mmol/L (3.5-5.1) L Chloride Level 107 mmol/L (101-111) Carbon Dioxide Level 21 mmol/L (21-32) Blood Urea Nitrogen 20 mg/dL (7-18) H Creatinine 0.8 mg/dL (0.5-1.0) Glomerular Filtration Rate Calc 100 mL/min (>90) Random Glucose 138 mg/dL (70-105) H Total Calcium 8.5 mg/dL (8.5-10.1) Troponin I High Sensitivity 9 ng/L (4-50) Serum Test, Qualitative NEGATIVE (NEGATIVE) Labs Reviewed?: Yes MDM MDM: The patient is a 34-year-old female with a past medical history of uterine fibroids presenting to the emergency department for evaluation of vaginal bleeding. The patient states she has been having vaginal bleeding for the last month but over the last24 hours and has increased in intensity. On physical examination the patient was found to be tachycardic in the 140s. She was no abdominal tenderness, rebound, or guarding. The remainder of her physical examination is reassuring. Patient was started on IV fluids. Her CBC shows a hemoglobin of 10.2. The remainder of her blood work is unremarkable. Pelvic ultrasound reveals worsening uterine fibroids. Her OBGYN Dr. Nj was consulted and he recommends following up in his office tomorrow morning for further evaluation. If the patient is to have worsening symptoms tonight he recommends the patient reporting to [facility] since that is where he has privileges. This was discussed with the patient and she was comfortable going home. Strict return precautions were given Differential diagnosis: Dysfunctional uterine bleeding, anemia, Rationale: Tests considered and ordered secondary to shared decision making include: Previous outside records reviewed: Old ER visits. Risk of complication and/or morbidity or mortality of patient management: None Medications-Per medication reconciliation Need for hospitalization: Patient does meet criteria for hospitalization. Need for emergency major/minor surgery: No There are no social concerns with this patient. Prescription drug management Prescriptions will include symptomatic care Patient's prior external medical records from other ER visits were reviewed by me as indicated. Prior testing and results from previous visits were reviewed. Prior tests were taken into account with medical decision making and resource utilization, independent historian/historians were used to obtain complete medical history. I independently interpreted the test that were performed, results were reviewed by me and considered findings on radiology if ordered. Medical management and examination interpretation discussions were had by me with other qualified healthcare professionals as indicated for the patient's care. ED Course Orders Procedure Category Date Status Time 12 Lead Ekg Tracing- EKG 12/09/24 Logged Technical 19:37 Cbc With Differential LAB 12/09/24 Complete 19:37 Basic Metabolic Panel LAB 12/09/24 Complete 19:37 Pt And Ptt LAB 12/09/24 Complete 19:37 Troponin I High LAB 12/09/24 Complete Sensitivity 19:37 Type And Screen BBK 12/09/24 Complete 19:37 Testing, LAB 12/09/24 Complete Serum Hcg 19:37 Us Pelvic Non-Ob US 12/09/24 Resulted Limited 20:03 0.9%Nacl 1000ml (Ns PHA 12/09/24 Complete 1000ml) 21:00 Current Medications Medications (Trade) Dose Ordered Sig/Myron Route PRN Reason Start Time Stop Time Status Last Admin Dose Admin Sodium Chloride 1,000 ml @ 0 mls/hr ONCE ONCE IV 12/09/24 21:00 12/09/24 21:01 DC 12/09/24 20:39 Vital Signs Date Time Temp Pulse Resp B/P (MAP) Pulse Ox O2 Delivery O2 Flow Rate FiO2 12/10/24 00:05 98.8 110 16 105/74 98 Room Air* 0 21 7/13/25 22:57 109 20 124/78 99 Room Air* 0 12/09/24 21:50 100 17 123/75 99 Room Air* 0 12/09/24 20:53 120 17 111/71 98 Room Air* 0 12/09/24 19:44 97.5 143 16 104/72 100 Room Air* 0 12/09/24 19:29 98.8 134 20 126/78 99 Room Air 0 DX & DISP Disposition: Discharge Departure Impression: Primary Impression: Uterine fibroid Additional Impression: Dysfunctional uterine bleeding Condition: Stable Additional Instructions: Your blood work today showed a hemoglobin of 10.2. The remainder of her blood work is stable. Your pelvic ultrasound reveals worsening uterine fibroids. We contacted your OBGYN over the phone and he recommends following up at his clinic tomorrow morning. He also advised to report to [facility] if you develop any worsening symptoms tonight. Referrals: SELF,REFERRAL (PCP) I have reviewed the case, and I agree with, Diagnosis and Plan I performed the substantive portion of the visit. I have reviewed and personally made and approve the management plan that is documented in the note by myself or the JESÚS. I acknowledge for responsibility for the patient's management plan. MIRIAM CAMILO Dec 10, 2024 00:03
[2024-12-10 00:05] VITALS: BP 105/74; PULSE 110; RESP 16; TEMP 98.7; O2SAT 98
--- NOTE | 2024-12-10 07:39 | EKG ---
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
== END 2024-12-10 00:19 | disposition home or self-care (01) ==
LOC: EDH 19:28
DX: D25.9 Leiomyoma of uterus, unspecified (principal); N93.8 Other specified abnormal uterine and vaginal bleeding; Z86.018 Personal history of other benign neoplasm; Z79.899 Other long term (current) drug therapy
CPT/HCPCS: 99284; 96360; 76857; 84484; 80048; 84703; 85025; 85610; 85730; 86850; 86900; 86901; 36415; 93005; J7030